=== PATIENT | male | born 1965 | race Caucasian/White ===

== ENCOUNTER 2018-03-26 17:55 | Inpatient (IN) | payer SELFPAY ==
[2018-03-26] MEDS ORDERED: ASPIRIN 81 MG TABLET, CHEWABLE PO ONE (19:02)
--- NOTE | 2018-03-26 19:04 | ER Document Report ---
ED General - General Chief Complaint: Skin Problem Stated Complaint: DIFFICULTY BREATHING Time Seen by Provider: 03/26/18 18:50 - HPI Notes: This note has been entered as a RME note. please regard as RME note Chest pain since Monday shortness of breath along with boils in the inguinal region patient is diabetic - Related Data Allergies/Adverse Reactions: No Known Allergies Allergy (Unverified 03/26/18 21:16) Past Medical History - Past Medical History Cardiac Medical History: Reports: Hx Hypertension Endocrine Medical History: Reports: Hx Diabetes Mellitus Type 2 Review of Systems - Review of Systems Cardiovascular: Chest pain Respiratory: Cough, Short of breath Skin: Other Physical Exam - Vital signs Vitals: Temp Pulse Resp BP Pulse Ox 99.6 F 96 18 120/74 95 03/26/18 18:10 03/26/18 18:10 03/26/18 18:10 03/26/18 18:10 03/26/18 18:10 Course - Vital Signs Vital signs: Temp Pulse Resp BP Pulse Ox 98.2 F 94 16 160/89 H 93 03/30/18 19:46 03/30/18 20:35 03/30/18 20:35 03/30/18 19:46 03/30/18 20:35 - Laboratory Result Diagrams: 03/29/18 14:35 03/28/18 06:27 Laboratory results interpreted by me: 03/26/18 03/26/18 03/26/18 19:19 19:19 20:29 WBC 31.5 H* Seg Neutrophils % Seg Neuts % (Manual) 79 H Lymphocytes % Lymphocytes % (Manual) 7 L Absolute Neutrophils Abs Neuts (Manual) 24.9 H Absolute Monocytes Abs Monocytes (Manual) 4.1 H Sodium 135.0 L Chloride 96 L BUN Glucose 206 H POC Glucose Hemoglobin A1c % 8.4 H Calcium Total Bilirubin 1.4 H Direct Bilirubin 0.7 H AST ALT < 6 L Creatine Kinase 27 L Total Protein 8.4 H Albumin 03/26/18 03/27/18 03/27/18 23:48 06:31 06:31 WBC 20.7 H Seg Neutrophils % 84.1 H Seg Neuts % (Manual) Lymphocytes % 6.5 L Lymphocytes % (Manual) Absolute Neutrophils 17.4 H Abs Neuts (Manual) Absolute Monocytes 1.8 H Abs Monocytes (Manual) Sodium 133.7 L Chloride 97 L BUN 21 H Glucose 344 H POC Glucose 263 H Hemoglobin A1c % Calcium 8.3 L Total Bilirubin Direct Bilirubin AST ALT Creatine Kinase Total Protein Albumin 03/27/18 03/27/18 03/27/18 06:34 10:47 15:25 WBC 21.3 H Seg Neutrophils % Seg Neuts % (Manual) Lymphocytes % Lymphocytes % (Manual) 12 L Absolute Neutrophils Abs Neuts (Manual) 16.6 H Absolute Monocytes Abs Monocytes (Manual) 2.1 H Sodium Chloride BUN Glucose POC Glucose 366 H 242 H Hemoglobin A1c % Calcium Total Bilirubin Direct Bilirubin AST ALT Creatine Kinase Total Protein Albumin 03/27/18 03/27/18 03/27/18 15:25 15:25 16:23 WBC Seg Neutrophils % Seg Neuts % (Manual) Lymphocytes % Lymphocytes % (Manual) Absolute Neutrophils Abs Neuts (Manual) Absolute Monocytes Abs Monocytes (Manual) Sodium 133.3 L Chloride BUN 21 H Glucose 197 H POC Glucose 187 H Hemoglobin A1c % 8.3 H Calcium 8.2 L Total Bilirubin Direct Bilirubin AST 11 L ALT Creatine Kinase Total Protein 6.0 L Albumin 2.8 L Discharge - Discharge Clinical Impression: Scrotal abscess, Cellulitis, Tachycardia, Leukocytosis Condition: Serious Disposition: ADMITTED INPATIENT
[2018-03-26 19:34] LABS: HEMOGLOBIN 16.4 g/dL (13.5-17.0); MEAN CORPUSCULAR HEMOGLOBIN 30.9 pg (27.0-33.4); MEAN CORPUSCULAR HGB CONC 34.9 g/dL (32.0-36.0); MEAN CORPUSCULAR VOLUME 89 fl (80-97); PLATELET COUNT 337 10^3/uL (150-450); RED BLOOD COUNT 5.31 10^6/uL (4.35-5.55); RED CELL DISTRIBUTION WIDTH 12.5 % (11.5-14.0)
--- NOTE | 2018-03-26 19:34 | RADIOLOGY REPORT (SQ) ---
EXAM DESCRIPTION: CHEST SINGLE VIEW COMPLETED DATE/TIME: 03/26/2018 7:24 pm REASON FOR STUDY: sob COMPARISON: None. EXAM PARAMETERS: NUMBER OF VIEWS: One view. TECHNIQUE: Single frontal radiographic view of the chest acquired. RADIATION DOSE: NA LIMITATIONS: None. FINDINGS: LUNGS AND PLEURA: No opacities, masses or pneumothorax. No pleural effusion. MEDIASTINUM AND HILAR STRUCTURES: No masses. Contour normal. HEART AND VASCULAR STRUCTURES: Heart normal in size. Normal vasculature. BONES: No acute findings. HARDWARE: None in the chest. OTHER: No other significant finding. IMPRESSION: NO ACUTE RADIOGRAPHIC FINDING IN THE CHEST. TECHNICAL DOCUMENTATION: JOB ID: [id number] [employer]- All Rights Reserved Reading location - IP/workstation name: [email or web address]
[2018-03-26 19:38] LABS: INTERNATIONAL RATION (INR) 1.03
[2018-03-26 19:56] LABS: ABSOLUTE LYMPHOCYTES# (MANUAL) 2.2 10^3/uL (0.5-4.7); ABSOLUTE MONOCYTES # (MANUAL) 4.1 10^3/uL (0.1-1.4); ABSOLUTE NEUTROPHILS# (MANUAL) 24.9 10^3/uL (1.7-8.2); BASOPHILS % (MANUAL) 0 % (0-2); EOSINOPHILS % (MANUAL) 1 % (0-6); LYMPHOCYTES % (MANUAL) 7 % (13-45); MONOCYTES % (MANUAL) 13 % (3-13); SEGMENTED NEUTROPHILS % (MAN) 79 % (42-78); TOTAL CELLS COUNTED 100
[2018-03-26] MEDS ORDERED: IPRATROPIUM/ALBUTEROL 0.5-2.5 MG/3 ML AMPUL NEB ONE (19:56)
[2018-03-26] MEDS ORDERED: FENTANYL CITRATE INJ/PF 100 MCG/2 ML AMPUL IV ONE (19:56)
[2018-03-26] MEDS ORDERED: ONDANSETRON HCL INJ/PF 4 MG/2 ML SDV IV ONE (19:57)
[2018-03-26] MEDS ORDERED: NORMAL SALINE 1000 ML 1,000 ML IV ONE (19:57)
[2018-03-26 19:58] LABS: ALANINE AMINOTRANSFERASE < 6 U/L (21-72); ALBUMIN 3.9 g/dL (3.5-5.0); ALKALINE PHOSPHATASE 125 U/L (38-126); ANION GAP 14 (5-19); ASPARTATE AMINO TRANSFERASE 24 U/L (17-59); BILIRUBIN,DIRECT 0.7 mg/dL (0.0-0.4); BILIRUBIN,TOTAL 1.4 mg/dL (0.2-1.3); BLOOD UREA NITROGEN 16 mg/dL (7-20); CARBON DIOXIDE 25 mmol/L (22-30); CHLORIDE 96 mmol/L (98-107); CREATINE KINASE 27 U/L (55-170); GLUCOSE 206 mg/dL (75-110); PLATELET COMMENT ADEQUATE; POTASSIUM 4.1 mmol/L (3.6-5.0); TOTAL PROTEIN 8.4 g/dL (6.3-8.2); TOXIC GRANULATION SLIGHT
--- NOTE | 2018-03-26 19:58 | ER Document Report ---
ED General - General Chief Complaint: Skin Problem Stated Complaint: DIFFICULTY BREATHING Time Seen by Provider: 03/26/18 18:50 Notes: Patient is a 52-year-old male that comes emergency department for chief complaint of boils and swelling of the scrotum and groin area for the past 3 days. He states he is starting to get shaking chills, nausea any throughout earlier today. He states he has not eaten anything all day because he has not felt good. He also states that for the past few days he has felt short of breath with some tightness and pressure in his chest. He smokes. He has diet- controlled diabetes. He denies any daily medications. His tetanus is up-to- date within 5 years reportedly. - Related Data Allergies/Adverse Reactions: No Known Allergies Allergy (Unverified 03/26/18 21:16) Past Medical History - General Information source: Patient - Social History Smoking Status: Current Every Day Smoker Smoking Education Provided: Yes - <3 min Frequency of alcohol use: None Drug Abuse: None Lives with: Spouse/Significant other Family History: Reviewed & Not Pertinent Endocrine Medical History: Reports: Hx Diabetes Mellitus Type 2 Surgical Hx: Negative - Immunizations Hx Diphtheria, Pertussis, Tetanus Vaccination: Yes Review of Systems - Review of Systems Constitutional: See HPI EENT: No symptoms reported Cardiovascular: See HPI Respiratory: See HPI Gastrointestinal: No symptoms reported Genitourinary: See HPI Male Genitourinary: No symptoms reported Musculoskeletal: No symptoms reported Skin: See HPI Hematologic/Lymphatic: No symptoms reported Neurological/Psychological: No symptoms reported Physical Exam - Vital signs Vitals: Temp Pulse Resp BP Pulse Ox 99.6 F 96 18 120/74 95 03/26/18 18:10 03/26/18 18:10 03/26/18 18:10 03/26/18 18:10 03/26/18 18:10 - Notes Notes: GENERAL: Alert and responsive but moderately ill-appearing HEAD: Normocephalic, atraumatic. EYES: Pupils equal, round, and reactive to light. Extraocular movements intact. ENT: Oral mucosa moist, tongue midline. Oropharynx unremarkable. Airway patent. Nares patent, no nasal septal hematoma, TM's intact. NECK: Full range of motion. Supple. Trachea midline. LUNGS: Mild expiratory wheezes throughout, no tachypnea or labored breathing noted. HEART: Tachycardia, normal rhythm, no murmur. ABDOMEN: Soft, non-tender. Non-distended. Bowel sounds present in all 4 quadrants. GENITOURINARY: Large swelling with edema and erythema with tenderness over the scrotum mainly on the left side with induration and some old drainage along the side of the scrotum. Perineum is normal, there is no necrotic tissue noted. EXTREMITIES: Moves all 4 extremities spontaneously. No edema, normal radial and dorsalis pedis pulses bilaterally. No cyanosis. BACK: no cervical, thoracic, lumbar midline tenderness. No saddle anesthesia, normal distal neurovascular exam. NEUROLOGICAL: Alert and oriented x3. Normal speech. [cranial nerves II through XII grossly intact]. PSYCH: Normal affect, normal mood. SKIN: Slightly flushed. No rashes. Course - Re-evaluation Re-evalutation: Physical examination showing edematous scrotum with induration, abscess, cellulitis. Patient is tachycardic and somewhat ill-appearing. He has expiratory wheezes, was given a DuoNeb, he is requesting a nicotine patch. Patient has been n.p.o. all day. Initiating antibiotics, labs pending, will contact surgery. Discussed with Dr. Arriaza. CBC showing leukocytosis at 31,000 with elevation of neutrophils but no bandemia. Lactic acid is normal. Chemistry shows hyperglycemia with no acidosis. Bilirubin is mildly elevated, however abdomen is nontender. LFTs unremarkable. 03/26/18 20:[address] Roy, general surgery audio production engineer, he request the patient be kept n.p.o., states he will see the patient, probably take to the operating room , request patient be admitted to the hospitalist. 03/26/18 20:[address] Mckinnon, he states that he will consult on the patient but he feels that this should be admitted to the surgeon. Updated Dr. Roy. Dr. Roy has seen the patient, he is taking the patient to the operating room. - Vital Signs Vital signs: Temp Pulse Resp BP Pulse Ox 98.3 F 102 H 16 107/70 92 03/26/18 23:30 03/26/18 23:30 03/26/18 23:30 03/26/18 23:30 03/26/18 23:30 - Laboratory Result Diagrams: 03/26/18 19:19 03/26/18 19:19 Laboratory results interpreted by me: 03/26/18 03/26/18 03/26/18 19:19 19:19 20:29 WBC 31.5 H* Seg Neuts % (Manual) 79 H Lymphocytes % (Manual) 7 L Abs Neuts (Manual) 24.9 H Abs Monocytes (Manual) 4.1 H Sodium 135.0 L Chloride 96 L Glucose 206 H Hemoglobin A1c % 8.4 H Total Bilirubin 1.4 H Direct Bilirubin 0.7 H ALT < 6 L Creatine Kinase 27 L Total Protein 8.4 H Discharge - Discharge Clinical Impression: Scrotal abscess, Tachycardia Cellulitis Qualifiers: Site of cellulitis: unspecified site Qualified Code(s): L03.90 - Cellulitis, unspecified Leukocytosis Qualifiers: Leukocytosis type: unspecified Qualified Code(s): D72.829 - Elevated white blood cell count, unspecified Condition: Serious Disposition: ADMITTED INPATIENT Admitting Provider: Surgicalist Unit Admitted: OR
[2018-03-26 20:08] LABS: WHITE BLOOD COUNT 31.5 10^3/uL (4.0-10.5)
[2018-03-26] MEDS ORDERED: PIPERACILLIN/TAZOBACTAM 4.5 GM VIAL IV ONE (20:10)
[2018-03-26] MEDS ORDERED: VANCOMYCIN HCL INJ 1000 MG VIAL IV ONE (20:10)
[2018-03-26 20:11] LABS: CREATINE KINASE MB < 0.22 ng/mL (<4.55); TROPONIN I < 0.012 ng/mL
[2018-03-26] MEDS ORDERED: NICOTINE 14 MG/24 HR PATCH.TD24 TD ONE (20:38)
[2018-03-26] MEDS ORDERED: NORMAL SALINE 1000 ML 1,000 ML IV PRN (21:06)
[2018-03-26] MEDS ORDERED: ONDANSETRON HCL INJ/PF 4 MG/2 ML SDV ONE (21:07)
[2018-03-26] MEDS ORDERED: FENTANYL CITRATE INJ/PF 100 MCG/2 ML AMPUL ONE (21:07)
[2018-03-26] MEDS ORDERED: MIDAZOLAM 2 MG/2 ML INJ ONE (21:07)
[2018-03-26] MEDS ORDERED: ACETAMINOPHEN 1,000 MG/100 ML RTUPB IV ONE (21:08)
[2018-03-26] MEDS ORDERED: MORPHINE SULFATE 10 MG/ML INJ ONE (21:08)
[2018-03-26] MEDS ORDERED: PROPOFOL INJ 200 MG/20 ML VIAL IV ONE (21:08)
--- NOTE | 2018-03-26 21:09 | PDOC H&P ---
History of Present Illness Admission Date/PCP: 03/26/18 21:01 Patient complains of: Left groin pain swelling drainage History of Present Illness: WASHINGTON MADSEN is a 52 year old male Presents emergency department via ground rescue complaining of a 3-4-day history of left groin pain, swelling, sweats, shaking chills. Patient smokes 3 packs cigarettes per day. He seen in the emergency department where he was found to have a purulent infected left groin and scrotal abscess. Surgery was consulted he is advised admission, definitive surgical management. He denies previous history groin pain, swelling or any other soft tissue infections. Past Medical History Cardiac Medical History: Reports: Hypertension Endocrine Medical History: Reports: Diabetes Mellitus Type 2 Past Surgical History Past Surgical History: Reports: None Social History Information Source: Patient Smoking Status: Current Every Day Smoker Frequency of Alcohol Use: Rare Hx Recreational Drug Use: No Family History Parental Family History Reviewed: Yes Children Family History Reviewed: Yes Sibling(s) Family History Reviewed.: Yes Medication/Allergy Allergies/Adverse Reactions: No Known Allergies Allergy (Unverified 03/26/18 17:57) Review of Systems Constitutional: PRESENT: as per HPI Eyes: ABSENT: visual disturbances Ears: ABSENT: hearing changes Cardiovascular: ABSENT: chest pain, dyspnea on exertion, edema, orthropnea, palpitations Respiratory: ABSENT: cough, hemoptysis Physical Exam Vital Signs: Temp Pulse Resp BP Pulse Ox 99.6 F 96 23 H 134/84 H 96 03/26/18 18:10 03/26/18 18:10 03/26/18 20:00 03/26/18 20:00 03/26/18 20:00 General appearance: PRESENT: mild distress Eye exam: PRESENT: EOMI Mouth exam: PRESENT: dry mucosa Neck exam: PRESENT: full ROM Respiratory exam: PRESENT: rhonchi Cardiovascular exam: PRESENT: RRR Pulses: PRESENT: normal carotid pulses, normal radial pulses GI/Abdominal exam: PRESENT: other - Foul-smelling drainage from the left inguinal region with cheesy material draining from around to spontaneously and wounds in the left deep groin extending onto the melissa-scrotal tissue Rectal exam: PRESENT: deferred Psychiatric exam: PRESENT: appropriate affect Results Impressions: Chest X-Ray 03/26/18 19:02 IMPRESSION: NO ACUTE RADIOGRAPHIC FINDING IN THE CHEST. Assessment & Plan - Diagnosis (1) Scrotal abscess Is this a current diagnosis for this admission?: Yes Plan: Impression: Acute left scrotal abscess with sepsis; needs admission and drainage 1. We will admit to the surgical service, keep n.p.o., IV fluid resuscitation and intravenous antibiotics. 2. We will check liver function studies in the morning to ensure total bilirubin stabilizes. 3. We have asked the hospitalist to consult and assist with medical management (2) Smoker Is this a current diagnosis for this admission?: Yes (3) Type 2 diabetes mellitus Is this a current diagnosis for this admission?: Yes (4) Cellulitis Qualifiers: Site of cellulitis: unspecified site Qualified Code(s): L03.90 - Cellulitis , unspecified Is this a current diagnosis for this admission?: Yes (5) Leukocytosis Qualifiers: Leukocytosis type: unspecified Qualified Code(s): D72.829 - Elevated white blood cell count, unspecified Is this a current diagnosis for this admission?: Yes (6) Tachycardia Is this a current diagnosis for this admission?: Yes - Time Time Spent: 30 to 50 Minutes Critical Time spent with patient: Less than 15 minutes Medications reviewed and adjusted accordingly: Yes Anticipated discharge: Home - Inpatient Certification Based on my medical assessment, after consideration of the patient's comorbidities, presenting symptoms, or acuity I expect that the services needed warrant INPATIENT care.: Yes I certify that my determination is in accordance with my understanding of Medicare's requirements for reasonable and necessary INPATIENT services [42 CFR 412.3e].: Yes Medical Necessity: Need For IV Fluids, Need for Pain Control, Need for IV Antibiotics, Need for Surgery
[2018-03-26] MEDS ORDERED: DEXTROSE 40% GEL 15 GM TUBE PO PRN ×4 (21:14→22:29)
[2018-03-26] MEDS ORDERED: DEXTROSE 50%-WATER 25 GM/50 ML DISP.SYRIN IV PRN ×4 (21:14→22:29)
[2018-03-26] MEDS ORDERED: GLUCAGON,HUMAN RECOMB 1 MG INJ IM PRN ×2 (21:14→22:29)
[2018-03-26] MEDS ORDERED: INSULIN LISPRO 100 UNIT/ML 3 ML VIAL SUBCUT PRN (21:14)
[2018-03-26] MEDS ORDERED: HYDRALAZINE HCL INJ/PF 20 MG/1 ML SDV IV PRN (21:15)
[2018-03-26] MEDS ORDERED: IPRATROPIUM/ALBUTEROL 0.5-2.5 MG/3 ML AMPUL NEB PRN (21:15)
[2018-03-26] MEDS ORDERED: BUPIVACAINE HCL 0.25 % INJ/PF (2.5 MG/1 ML) 30 ML VIAL ONE (21:19)
[2018-03-26] MEDS ORDERED: BUPIVACAINE HCL/DEX-WATER/PF 15 MG/2 ML AMPULE ONE (21:55)
[2018-03-26] MEDS ORDERED: FENTANYL CITRATE INJ/PF 100 MCG/2 ML AMPUL IV PRN ×3 (22:21)
[2018-03-26] MEDS ORDERED: MEPERIDINE HCL/PF INJ 25 MG/1 ML DISP.SYRIN IV PRN (22:21)
[2018-03-26] MEDS ORDERED: PROMETHAZINE HCL INJ 25 MG/1 ML VIAL IV PRN (22:21)
[2018-03-26] MEDS ORDERED: DIPHENHYDRAMINE HCL 50 MG/ML VIAL IV PRN (22:21)
[2018-03-26] MEDS ORDERED: ONDANSETRON HCL INJ/PF 4 MG/2 ML SDV IV PRN (22:28)
[2018-03-26] MEDS ORDERED: KETOROLAC TROMETHAMINE 10 MG TABLET PO PRN (22:28)
--- NOTE | 2018-03-26 22:28 | Operative Report ---
Operative Report DATE OF SURGERY: 03/26/18 PREOPERATIVE DIAGNOSIS: 1. Sepsis. 2. Left groin abscess. 3. Uncontrolled hyper glycemia POSTOPERATIVE DIAGNOSIS: Same OPERATION: Incision and drainage packing left upper scrotal abscess SURGEON: JESSICA JACKSON ANESTHESIA: Spinal TISSUE REMOVED OR ALTERED: Necrotic subcutaneous tissue and skin COMPLICATIONS: None ESTIMATED BLOOD LOSS: Scant INTRAOPERATIVE FINDINGS: See below PROCEDURE: The patient was taken to the main operating room and spinal anesthesia was induced. He was placed in the spine, stirrups position, scrotum prepped and draped sterile fashion. Surgical plan surgical timeout were conducted. An elliptical excision of skin and subcutaneous tissue was performed with a #10 blade over the left hemiscrotum along the orientation in the lateral scrotal sac. Subcutaneous tissue loculations were broken up with hemostat. Pus was evacuated. Subcutaneous tracking cephalad caudad laterally and medially was defined, and all loculations broken up. There was no tracking across midline or into deeper tissue. Culture sent for Gram stain sensitivity. Wound irrigated with 2 L of warm saline and packed open with half-inch iodoform packing,, taken recovery room in stable condition.
[2018-03-27] MEDS: HEPARIN SOD (PORCINE) 5,000 UNIT/ML 1 ML SYRINGE SUBCUT SCH ×4 (00:06→21:25)
[2018-03-27] MEDS: INSULIN REG, HUMAN 100 UNIT/ML 3 ML VIAL (PYX) SUBCUT PRN ×2 (00:07→07:48)
[2018-03-27] MEDS: KETOROLAC TROMETHAMINE INJ/PF 30 MG/1 ML SDV IV PRN ×3 (00:27→16:02)
[2018-03-27 06:59] LABS: ABSOLUTE BASOPHILS # (AUTO) 0.1 10^3/uL (0.0-0.2); ABSOLUTE LYMPHOCYTES (AUTO) 1.3 10^3/uL (0.5-4.7); ABSOLUTE MONOCYTES (AUTO) 1.8 10^3/uL (0.1-1.4); ABSOLUTE NEUT (AUTO) 17.4 10^3/uL (1.7-8.2); BASOPHILS % (AUTO) 0.4 % (0-2); EOSINOPHILS % (AUTO) 0.1 % (0-6); HEMATOCRIT 43.2 % (37.9-51.0); HEMOGLOBIN 14.7 g/dL (13.5-17.0); LYMPHOCYTES % (AUTO) 6.5 % (13-45); MEAN CORPUSCULAR HEMOGLOBIN 30.8 pg (27.0-33.4); MEAN CORPUSCULAR VOLUME 91 fl (80-97); MONOCYTES % (AUTO) 8.9 % (3-13); PLATELET COUNT 250 10^3/uL (150-450); RED BLOOD COUNT 4.77 10^6/uL (4.35-5.55); RED CELL DISTRIBUTION WIDTH 13.3 % (11.5-14.0); SEGMENTED NEUTROPHILS % (AUTO) 84.1 % (42-78); TOTAL CELLS COUNTED % (AUTO) 100 %; WHITE BLOOD COUNT 20.7 10^3/uL (4.0-10.5)
[2018-03-27 07:15] LABS: ANION GAP 12 (5-19); BLOOD UREA NITROGEN 21 mg/dL (7-20); CALCIUM 8.3 mg/dL (8.4-10.2); CARBON DIOXIDE 25 mmol/L (22-30); CHLORIDE 97 mmol/L (98-107); GLUCOSE 344 mg/dL (75-110); POTASSIUM 4.8 mmol/L (3.6-5.0); SODIUM 133.7 mmol/L (137-145)
[2018-03-27] MEDS: IPRATROPIUM/ALBUTEROL 0.5-2.5 MG/3 ML AMPUL NEB SCH ×2 (08:17→20:02)
[2018-03-27] MEDS ORDERED: MORPHINE SULFATE 10 MG/ML INJ ONE (09:33)
[2018-03-27] MEDS ORDERED: MORPHINE SULFATE 10 MG/ML INJ IV ONE (10:15)
--- NOTE | 2018-03-27 10:37 | PDOC PROGRESS REPORT ---
Subjective Progress Note for:: 03/27/18 Subjective:: pains left groin Reason For Visit: LEFT GROIN AND SCROTAL ABSCESS Physical Exam Vital Signs: Temp Pulse Resp BP Pulse Ox 99.4 F 79 16 119/72 91 L 03/27/18 08:00 03/27/18 08:17 03/27/18 08:17 03/27/18 08:00 03/27/18 08:17 Intake & Output 03/26/18 03/27/18 03/28/18 06:59 06:59 06:59 Intake Total 4720 Output Total 1999 Balance 2720 Weight 118.3 kg Exam: packing removed from left groin but still have a lot of tenderness and erythema to left groin and scrotal area. Results Laboratory Results: 03/27/18 06:31 03/27/18 06:31 03/27/18 03/27/18 06:31 06:31 WBC 20.7 H RBC 4.77 Hgb 14.7 Hct 43.2 MCV 91 MCH 30.8 MCHC 34.0 RDW 13.3 Plt Count 250 Seg Neutrophils % 84.1 H Lymphocytes % 6.5 L Monocytes % 8.9 Eosinophils % 0.1 Basophils % 0.4 Absolute Neutrophils 17.4 H Absolute Lymphocytes 1.3 Absolute Monocytes 1.8 H Absolute Eosinophils 0.0 Absolute Basophils 0.1 Sodium 133.7 L Potassium 4.8 Chloride 97 L Carbon Dioxide 25 Anion Gap 12 BUN 21 H Creatinine 1.05 Est GFR ( Amer) > 60 Est GFR (Non-Af Amer) > 60 Glucose 344 H Calcium 8.3 L 03/27/18 03/27/18 00:21 06:31 Troponin I < 0.012 NT-Pro-B Natriuret Pep 287 Impressions: Chest X-Ray 03/26/18 19:02 IMPRESSION: NO ACUTE RADIOGRAPHIC FINDING IN THE CHEST. Assessment & Plan - Time Time Spent with patient: 15-24 minutes - Inpatient Certification Medical Necessity: Need for Pain Control, Need for IV Antibiotics - Plan Summary Plan Summary: Left groin wound repacked gently with wet to dry dressings Ask Hospitalist for Diabetes mx. Continue IV antibiotics Check C&S results
[2018-03-27] MEDS ORDERED: INSULIN LISPRO 100 UNIT/ML 3 ML VIAL SUBCUT PRN (12:14)
[2018-03-27] MEDS ORDERED: DEXTROSE 50%-WATER 25 GM/50 ML DISP.SYRIN IV PRN ×4 (12:14→12:22)
[2018-03-27] MEDS ORDERED: GLUCAGON,HUMAN RECOMB 1 MG INJ IM PRN ×2 (12:14→12:22)
[2018-03-27] MEDS ORDERED: DEXTROSE 40% GEL 15 GM TUBE PO PRN ×4 (12:14→12:22)
[2018-03-27] MEDS ORDERED: INSULIN REG, HUMAN 100 UNIT/ML 3 ML VIAL (PYX) SUBCUT PRN (12:22)
--- NOTE | 2018-03-27 12:35 | PDOC CONSULTATION ---
Consultation Consult Date: 03/27/18 Consult reason:: Patient has history of diabetes mellitus and hypertension History of Present Illness Admission Date/PCP: 03/26/18 21:01 History of Present Illness: WASHINGTON MADSEN is a 52 year old male with h/o DM and HTN ,not on meds Presents emergency department via ground rescue complaining of a 3-4-day history of left groin pain, swelling, sweats, shaking chills. Patient smokes 3 packs cigarettes per day. He seen in the emergency department where he was found to have a purulent infected left groin and scrotal abscess. Surgery was consulted he is advised admission, definitive surgical management. He denies previous history groin pain, swelling or any other soft tissue infections. 03/27/2018-status post I$D day 2, patient is comfortably in the bed denies any complaints. He is afebrile. Vital signs are stable. Medical consult was called for the management of blood sugars and hypertension. Patient is given the history of scrotal abscess noticed 3 days ago increasing size and pain decided to come to the emergency room last night. He has a similar issues before in other places of the body. He describes intense pain pain scale of 10 x 10 associated with fevers chills sweating. He is also complained of nausea and vomitings since yesterday denies any diarrhea. Denies any rashes, denies any headaches dizzy spells. Denies any chest pains. Past Medical History Cardiac Medical History: Reports: Hypertension Endocrine Medical History: Reports: Diabetes Mellitus Type 2 Psychiatric Medical History: Denies: Depression Past Surgical History Past Surgical History: Reports: None Social History Lives with: Spouse/Significant other Smoking Status: Current Every Day Smoker Frequency of Alcohol Use: Rare Hx Recreational Drug Use: No Hx Prescription Drug Abuse: No - Advance Directive Resuscitation Status: Full Code Family History Family History: Reviewed & Not Pertinent, Other - Family history of diabetes and hypertension. Parental Family History Reviewed: Yes Children Family History Reviewed: Yes Sibling(s) Family History Reviewed.: Yes Medication/Allergy Home Medications: No Home Medications 03/26/18 Allergies/Adverse Reactions: No Known Allergies Allergy (Unverified 03/26/18 21:16) Review of Systems Constitutional: PRESENT: chills, fever(s) Eyes: ABSENT: visual disturbances Ears: ABSENT: hearing changes Nose, Mouth, and Throat: ABSENT: headache(s), sore throat Cardiovascular: ABSENT: dyspnea on exertion Respiratory: ABSENT: dyspnea Gastrointestinal: PRESENT: nausea, vomiting Genitourinary: PRESENT: other - Severe swelling in the scrotal region left side with pain associated with fever chills.. ABSENT: dysuria, hematuria Neurological: ABSENT: abnormal gait, abnormal speech, confusion, dizziness, focal weakness, syncope Physical Exam Vital Signs: Temp Pulse Resp BP Pulse Ox 98.8 F 108 H 18 111/70 91 L 03/27/18 11:34 03/27/18 11:34 03/27/18 11:34 03/27/18 11:34 03/27/18 11:34 Intake & Output 03/26/18 03/27/18 03/28/18 06:59 06:59 06:59 Intake Total 4720 1000 Output Total 2000 Balance 2720 1000 Weight 118.3 kg General appearance: PRESENT: mild distress Head exam: PRESENT: atraumatic Eye exam: PRESENT: PERRLA Mouth exam: PRESENT: moist Neck exam: ABSENT: carotid bruit, JVD, lymphadenopathy, thyromegaly Respiratory exam: PRESENT: clear to auscultation raine. ABSENT: rales, rhonchi, wheezes Vascular exam: PRESENT: normal capillary refill GI/Abdominal exam: PRESENT: normal bowel sounds, soft. ABSENT: distended, guarding, mass, organolmegaly, rebound, tenderness Extremities exam: PRESENT: other - Left-sided scrotal abscess status post I&D rapid and dressing. Neurological exam: PRESENT: alert, awake, oriented to person, oriented to place , oriented to time, oriented to situation, CN II-XII grossly intact. ABSENT: motor sensory deficit Psychiatric exam: PRESENT: appropriate affect, normal mood. ABSENT: homicidal ideation, suicidal ideation Results Laboratory Results: 03/27/18 06:31 03/27/18 06:31 03/27/18 03/27/18 06:31 06:31 WBC 20.7 H RBC 4.77 Hgb 14.7 Hct 43.2 MCV 91 MCH 30.8 MCHC 34.0 RDW 13.3 Plt Count 250 Seg Neutrophils % 84.1 H Lymphocytes % 6.5 L Monocytes % 8.9 Eosinophils % 0.1 Basophils % 0.4 Absolute Neutrophils 17.4 H Absolute Lymphocytes 1.3 Absolute Monocytes 1.8 H Absolute Eosinophils 0.0 Absolute Basophils 0.1 Sodium 133.7 L Potassium 4.8 Chloride 97 L Carbon Dioxide 25 Anion Gap 12 BUN 21 H Creatinine 1.05 Est GFR ( Amer) > 60 Est GFR (Non-Af Amer) > 60 Glucose 344 H Calcium 8.3 L 03/27/18 03/27/18 00:21 06:31 Troponin I < 0.012 NT-Pro-B Natriuret Pep 287 Impressions: Chest X-Ray 03/26/18 19:02 IMPRESSION: NO ACUTE RADIOGRAPHIC FINDING IN THE CHEST. Assessment & Plan - Diagnosis (1) Scrotal abscess Is this a current diagnosis for this admission?: Yes Plan: 03/23/2018-patient came in with left-sided scrotal abscess status post I&D was done. Scrotal cultures are pending blood cultures are pending. I started him on Unasyn 3 g IV every 6 hours. Pain management as per the surgical team. After IV fluids. (2) Smoker Is this a current diagnosis for this admission?: Yes Plan: 03/27/2018 patient has history of smoking 3 packs/day. Smoking counseling was advised and smoking counseling was provided for more than 10 minutes. Advised to quit smoking. (3) Type 2 diabetes mellitus Is this a current diagnosis for this admission?: Yes Plan: 03/27/2018 patient is given the history of diabetes mellitus. But is not in any home medications. His blood sugars are running high during the hospital admission. Latest blood sugar is 242. I am going to check his hemoglobin A1c. He is going to be on insulin sliding scale before meals and at bedtime. Dietary consult is going to be requested. Diet and exercise was advised. (4) Tachycardia Is this a current diagnosis for this admission?: Yes Plan: 03/27/2018 patient's heart rate is around 108. Tachycardia may be secondary to sepsis/pain. (5) Hypertension Is this a current diagnosis for this admission?: Yes Plan: 03/27/2018 patient given the history of hypertension but is not any home medications. I started him on lisinopril 10 mg p.o. nightly. I am going to adjust his blood pressure medications based on the daily readings. - Time Time Spent: 30 to 50 Minutes Medications reviewed and adjusted accordingly: Yes Anticipated discharge: Home
[2018-03-27] MEDS: INSULIN LISPRO 100 UNIT/ML 3 ML VIAL SUBCUT PRN ×2 (12:43→17:44)
--- NOTE | 2018-03-27 13:08 | EKG REPORT ---
SEVERITY:- OTHERWISE NORMAL ECG - SINUS TACHYCARDIA : Confirmed by: Bharti Guevara MD 27-Mar-2018 13:07:27
[2018-03-27] MEDS: AMPICILLIN SODIUM/SULBACTAM NA 3 GM in NORMAL SALINE 100 ML IV SCH ×2 (13:12→17:57)
[2018-03-27 14:43] LABS: PATH REVIEW PATHOLOGIST REVIEWED
[2018-03-27] MEDS: ACETAMINOPHEN 325 MG TABLET PO PRN ×2 (15:05→21:45)
[2018-03-27 15:39] LABS: HEMATOCRIT 39.8 % (37.9-51.0); HEMOGLOBIN 13.7 g/dL (13.5-17.0); MEAN CORPUSCULAR HEMOGLOBIN 30.7 pg (27.0-33.4); MEAN CORPUSCULAR HGB CONC 34.5 g/dL (32.0-36.0); MEAN CORPUSCULAR VOLUME 89 fl (80-97); PLATELET COUNT 268 10^3/uL (150-450); RED BLOOD COUNT 4.47 10^6/uL (4.35-5.55); RED CELL DISTRIBUTION WIDTH 12.7 % (11.5-14.0); WHITE BLOOD COUNT 21.3 10^3/uL (4.0-10.5)
[2018-03-27 15:54] LABS: ABSOLUTE LYMPHOCYTES# (MANUAL) 2.6 10^3/uL (0.5-4.7); ABSOLUTE MONOCYTES # (MANUAL) 2.1 10^3/uL (0.1-1.4); ABSOLUTE NEUTROPHILS# (MANUAL) 16.6 10^3/uL (1.7-8.2); BASOPHILS % (MANUAL) 0 % (0-2); EOSINOPHILS % (MANUAL) 0 % (0-6); LYMPHOCYTES % (MANUAL) 12 % (13-45); MONOCYTES % (MANUAL) 10 % (3-13); SEGMENTED NEUTROPHILS % (MAN) 78 % (42-78); TOTAL CELLS COUNTED 100
[2018-03-27 15:55] LABS: PLATELET COMMENT ADEQUATE; TOXIC GRANULATION SLIGHT
[2018-03-27 15:56] LABS: ALANINE AMINOTRANSFERASE 21 U/L (21-72); ALBUMIN 2.8 g/dL (3.5-5.0); ALKALINE PHOSPHATASE 86 U/L (38-126); ANION GAP 8 (5-19); ASPARTATE AMINO TRANSFERASE 11 U/L (17-59); BILIRUBIN,DIRECT 0.4 mg/dL (0.0-0.4); BILIRUBIN,TOTAL 0.4 mg/dL (0.2-1.3); BLOOD UREA NITROGEN 21 mg/dL (7-20); CALCIUM 8.2 mg/dL (8.4-10.2); CARBON DIOXIDE 26 mmol/L (22-30); CHLORIDE 99 mmol/L (98-107); GLUCOSE 197 mg/dL (75-110); POTASSIUM 4.4 mmol/L (3.6-5.0); SODIUM 133.3 mmol/L (137-145)
[2018-03-27] MEDS ORDERED: NICOTINE 21 MG/24 HR PATCH.TD24 TD ONE (16:30)
[2018-03-27] MEDS ORDERED: AMPICILLIN SOD/SULBACTAM 3 GM VIAL IV SCH (18:00)
[2018-03-27] MEDS: MORPHINE SULFATE 10 MG/ML INJ IV PRN (18:54)
[2018-03-27] MEDS: SIMVASTATIN 10 MG TABLET PO SCH (21:46)
[2018-03-28] MEDS: AMPICILLIN SODIUM/SULBACTAM NA 3 GM in NORMAL SALINE 100 ML IV SCH ×4 (00:36→17:56)
[2018-03-28] MEDS: ACETAMINOPHEN 325 MG TABLET PO PRN (03:51)
[2018-03-28] MEDS: HEPARIN SOD (PORCINE) 5,000 UNIT/ML 1 ML SYRINGE SUBCUT SCH ×3 (05:26→21:56)
[2018-03-28 06:40] LABS: ABSOLUTE BASOPHILS # (AUTO) 0.1 10^3/uL (0.0-0.2); ABSOLUTE LYMPHOCYTES (AUTO) 1.6 10^3/uL (0.5-4.7); ABSOLUTE MONOCYTES (AUTO) 1.4 10^3/uL (0.1-1.4); ABSOLUTE NEUT (AUTO) 16.7 10^3/uL (1.7-8.2); BASOPHILS % (AUTO) 0.3 % (0-2); EOSINOPHILS % (AUTO) 0.1 % (0-6); HEMATOCRIT 39.9 % (37.9-51.0); HEMOGLOBIN 13.8 g/dL (13.5-17.0); MEAN CORPUSCULAR HEMOGLOBIN 30.5 pg (27.0-33.4); MEAN CORPUSCULAR HGB CONC 34.5 g/dL (32.0-36.0); MEAN CORPUSCULAR VOLUME 88 fl (80-97); MONOCYTES % (AUTO) 7.3 % (3-13); PLATELET COUNT 273 10^3/uL (150-450); RED BLOOD COUNT 4.52 10^6/uL (4.35-5.55); RED CELL DISTRIBUTION WIDTH 12.9 % (11.5-14.0); SEGMENTED NEUTROPHILS % (AUTO) 84.3 % (42-78); TOTAL CELLS COUNTED % (AUTO) 100 %; WHITE BLOOD COUNT 19.8 10^3/uL (4.0-10.5)
[2018-03-28 06:52] LABS: ANION GAP 8 (5-19); BLOOD UREA NITROGEN 17 mg/dL (7-20); CALCIUM 8.2 mg/dL (8.4-10.2); CARBON DIOXIDE 25 mmol/L (22-30); CHLORIDE 104 mmol/L (98-107); GLUCOSE 200 mg/dL (75-110); POTASSIUM 4.2 mmol/L (3.6-5.0); SODIUM 137.3 mmol/L (137-145)
[2018-03-28] MEDS: MORPHINE SULFATE 10 MG/ML INJ IV PRN ×3 (08:00→22:01)
[2018-03-28] MEDS: INSULIN LISPRO 100 UNIT/ML 3 ML VIAL SUBCUT PRN ×4 (08:08→21:56)
[2018-03-28] MEDS: IPRATROPIUM/ALBUTEROL 0.5-2.5 MG/3 ML AMPUL NEB SCH ×2 (08:43→19:38)
[2018-03-28] MEDS: LISINOPRIL 10 MG TABLET PO SCH (10:01)
[2018-03-28] MEDS: NICOTINE 21 MG/24 HR PATCH.TD24 TD SCH (10:01)
[2018-03-28] MEDS: KETOROLAC TROMETHAMINE INJ/PF 30 MG/1 ML SDV IV PRN ×2 (10:11→17:55)
--- NOTE | 2018-03-28 12:42 | PDOC PROGRESS REPORT ---
Subjective Reason For Visit: LEFT GROIN AND SCROTAL ABSCESS,POSSIBLE SEPSIS Physical Exam Vital Signs: Temp Pulse Resp BP Pulse Ox 99.0 F 98 16 134/73 H 92 03/28/18 11:21 03/28/18 11:21 03/28/18 11:21 03/28/18 11:21 03/28/18 11:21 Intake & Output 03/27/18 03/28/18 03/29/18 06:59 06:59 06:59 Intake Total 4720 2324 Output Total 1999 1700 Balance 2720 624 Weight 118.3 kg 124.4 kg Results Laboratory Results: 03/28/18 06:27 03/28/18 06:27 03/27/18 03/27/18 03/28/18 15:25 15:25 06:27 WBC 21.3 H 19.8 H RBC 4.47 4.52 Hgb 13.7 13.8 Hct 39.8 39.9 MCV 89 88 MCH 30.7 30.5 MCHC 34.5 34.5 RDW 12.7 12.9 Plt Count 268 273 Seg Neutrophils % Not Reportable 84.3 H Lymphocytes % Not Reportable 8.0 L Monocytes % Not Reportable 7.3 Eosinophils % Not Reportable 0.1 Basophils % Not Reportable 0.3 Absolute Neutrophils Not Reportable 16.7 H Absolute Lymphocytes Not Reportable 1.6 Absolute Monocytes Not Reportable 1.4 Absolute Eosinophils Not Reportable 0.0 Absolute Basophils Not Reportable 0.1 Sodium 133.3 L Potassium 4.4 Chloride 99 Carbon Dioxide 26 Anion Gap 8 BUN 21 H Creatinine 1.15 Est GFR ( Amer) > 60 Est GFR (Non-Af Amer) > 60 Glucose 197 H Calcium 8.2 L Magnesium 1.6 Total Bilirubin 0.4 AST 11 L ALT 21 Alkaline Phosphatase 86 Total Protein 6.0 L Albumin 2.8 L 03/28/18 06:27 WBC RBC Hgb Hct MCV MCH MCHC RDW Plt Count Seg Neutrophils % Lymphocytes % Monocytes % Eosinophils % Basophils % Absolute Neutrophils Absolute Lymphocytes Absolute Monocytes Absolute Eosinophils Absolute Basophils Sodium 137.3 Potassium 4.2 Chloride 104 Carbon Dioxide 25 Anion Gap 8 BUN 17 Creatinine 0.80 Est GFR ( Amer) > 60 Est GFR (Non-Af Amer) > 60 Glucose 200 H Calcium 8.2 L Magnesium Total Bilirubin AST ALT Alkaline Phosphatase Total Protein Albumin 03/27/18 03/27/18 00:21 06:31 Troponin I < 0.012 NT-Pro-B Natriuret Pep 287 Impressions: Chest X-Ray 03/26/18 19:02 IMPRESSION: NO ACUTE RADIOGRAPHIC FINDING IN THE CHEST. Assessment & Plan - Plan Summary Plan Summary: 52-year-old male status post incision and drainage of a scrotal abscess. The abscess cavity appears clean, without continued purulence. The patient still has significant swelling of the scrotum, which is likely reactive. The patient needs aggressive blood glucose management. Continue antibiotics. Continue dressing changes. Ambulate.
--- NOTE | 2018-03-28 13:49 | PDOC PROGRESS REPORT ---
Subjective Progress Note for:: 03/28/18 Subjective:: 52-year-old male with history of diabetes hypertension admitted with a left scrotal abscess status post I&D was done. Medical consult was requested for controlling blood sugars and blood pressure. Other than the problem of the scrotum patient is asymptomatic. His main concern is the swollen scrotum. Patient T-max is 99. Reason For Visit: LEFT GROIN AND SCROTAL ABSCESS,POSSIBLE SEPSIS Physical Exam Vital Signs: Temp Pulse Resp BP Pulse Ox 99.0 F 98 16 134/73 H 92 03/28/18 11:21 03/28/18 11:21 03/28/18 11:21 03/28/18 11:21 03/28/18 11:21 Intake & Output 03/27/18 03/28/18 03/29/18 06:59 06:59 06:59 Intake Total 4720 2324 Output Total 1999 1700 Balance 2720 624 Weight 118.3 kg 124.4 kg General appearance: PRESENT: no acute distress Head exam: PRESENT: atraumatic Eye exam: PRESENT: PERRLA Mouth exam: PRESENT: moist Neck exam: ABSENT: carotid bruit, JVD, lymphadenopathy, thyromegaly Respiratory exam: PRESENT: clear to auscultation raine. ABSENT: rales, rhonchi, wheezes Cardiovascular exam: PRESENT: RRR. ABSENT: diastolic murmur, rubs, systolic murmur GI/Abdominal exam: PRESENT: normal bowel sounds, soft. ABSENT: distended, guarding, mass, organolmegaly, rebound, tenderness Gentrourinary exam: PRESENT: other - Left side scrotum is significantly swollen. Extremities exam: PRESENT: full ROM. ABSENT: calf tenderness, clubbing, pedal edema Neurological exam: PRESENT: alert, awake, oriented to person, oriented to place , oriented to time, oriented to situation, CN II-XII grossly intact. ABSENT: motor sensory deficit Psychiatric exam: PRESENT: appropriate affect, normal mood. ABSENT: homicidal ideation, suicidal ideation Results Laboratory Results: 03/28/18 06:27 03/28/18 06:27 03/27/18 03/27/18 03/28/18 15:25 15:25 06:27 WBC 21.3 H 19.8 H RBC 4.47 4.52 Hgb 13.7 13.8 Hct 39.8 39.9 MCV 89 88 MCH 30.7 30.5 MCHC 34.5 34.5 RDW 12.7 12.9 Plt Count 268 273 Seg Neutrophils % Not Reportable 84.3 H Lymphocytes % Not Reportable 8.0 L Monocytes % Not Reportable 7.3 Eosinophils % Not Reportable 0.1 Basophils % Not Reportable 0.3 Absolute Neutrophils Not Reportable 16.7 H Absolute Lymphocytes Not Reportable 1.6 Absolute Monocytes Not Reportable 1.4 Absolute Eosinophils Not Reportable 0.0 Absolute Basophils Not Reportable 0.1 Sodium 133.3 L Potassium 4.4 Chloride 99 Carbon Dioxide 26 Anion Gap 8 BUN 21 H Creatinine 1.15 Est GFR ( Amer) > 60 Est GFR (Non-Af Amer) > 60 Glucose 197 H Calcium 8.2 L Magnesium 1.6 Total Bilirubin 0.4 AST 11 L ALT 21 Alkaline Phosphatase 86 Total Protein 6.0 L Albumin 2.8 L 03/28/18 06:27 WBC RBC Hgb Hct MCV MCH MCHC RDW Plt Count Seg Neutrophils % Lymphocytes % Monocytes % Eosinophils % Basophils % Absolute Neutrophils Absolute Lymphocytes Absolute Monocytes Absolute Eosinophils Absolute Basophils Sodium 137.3 Potassium 4.2 Chloride 104 Carbon Dioxide 25 Anion Gap 8 BUN 17 Creatinine 0.80 Est GFR ( Amer) > 60 Est GFR (Non-Af Amer) > 60 Glucose 200 H Calcium 8.2 L Magnesium Total Bilirubin AST ALT Alkaline Phosphatase Total Protein Albumin 03/27/18 03/27/18 00:21 06:31 Troponin I < 0.012 NT-Pro-B Natriuret Pep 287 Impressions: Chest X-Ray 03/26/18 19:02 IMPRESSION: NO ACUTE RADIOGRAPHIC FINDING IN THE CHEST. Assessment & Plan - Diagnosis (1) Scrotal abscess Is this a current diagnosis for this admission?: Yes Plan: 03/27/2018-patient came in with left-sided scrotal abscess status post I&D was done. Scrotal cultures are pending blood cultures are pending. I started him on Unasyn 3 g IV every 6 hours. Pain management as per the surgical team. After IV fluids. 03/28/2018-is admitted with scrotal abscess status post I&D was done as per the surgical team scrotum was taped very much swollen but was clean. He is getting Unasyn. Cultures are pending. Cultures came back positive for Peptostreptococcus and sensitivity to Unasyn. (2) Smoker Is this a current diagnosis for this admission?: Yes Plan: 03/27/2018 patient has history of smoking 3 packs/day. Smoking counseling was advised and smoking counseling was provided for more than 10 minutes. Advised to quit smoking. 03/28/2018 patient smokes more than 3 packs/day. Smoking counseling was provided for more than 10 minutes today again. (3) Type 2 diabetes mellitus Is this a current diagnosis for this admission?: Yes Plan: 03/27/2018 patient is given the history of diabetes mellitus. But is not in any home medications. His blood sugars are running high during the hospital admission. Latest blood sugar is 242. I am going to check his hemoglobin A1c. He is going to be on insulin sliding scale before meals and at bedtime. Dietary consult is going to be requested. Diet and exercise was advised. 03/28/2018 patient history of diabetes mellitus not on any home medications. He is on insulin sliding scale before meals and at bedtime. Hemoglobin A1c is 8.4. I started him on glipizide 2.5 mg p.o. twice daily. Latest blood sugar is 228. Continue the present management continue to check his blood sugars on a regular basis. (4) Tachycardia Is this a current diagnosis for this admission?: Yes Plan: 03/27/2018 patient's heart rate is around 108. Tachycardia may be secondary to sepsis/pain. Patient's heart rate is 98 today still tachycardic. May be secondary to pain. (5) Hypertension Is this a current diagnosis for this admission?: Yes Plan: 03/27/2018 patient given the history of hypertension but is not any home medications. I started him on lisinopril 10 mg p.o. nightly. I am going to adjust his blood pressure medications based on the daily readings. 03/28/2018 patient has history of hypertension not on any home medications. He was started on lisinopril 10 mg p.o. daily yesterday today's blood pressure is 134/75. Well controlled. - Time Time Spent with patient: 15-24 minutes Smoking Cessation Education: 3 to 10 minutes Medications reviewed and adjusted accordingly: Yes Anticipated discharge: Home
[2018-03-28] MEDS: GLIPIZIDE XL 2.5 MG TAB.ER.24 PO SCH (16:21)
[2018-03-28] MEDS: SIMVASTATIN 10 MG TABLET PO SCH (21:56)
[2018-03-29] MEDS: AMPICILLIN SODIUM/SULBACTAM NA 3 GM in NORMAL SALINE 100 ML IV SCH ×5 (00:47→23:19)
[2018-03-29] MEDS: HEPARIN SOD (PORCINE) 5,000 UNIT/ML 1 ML SYRINGE SUBCUT SCH ×3 (05:17→21:36)
[2018-03-29] MEDS: KETOROLAC TROMETHAMINE INJ/PF 30 MG/1 ML SDV IV PRN ×2 (07:58→17:20)
[2018-03-29] MEDS: GLIPIZIDE XL 2.5 MG TAB.ER.24 PO SCH (08:20)
[2018-03-29] MEDS: IPRATROPIUM/ALBUTEROL 0.5-2.5 MG/3 ML AMPUL NEB SCH ×2 (08:56→20:14)
[2018-03-29] MEDS: NICOTINE 21 MG/24 HR PATCH.TD24 TD SCH (12:06)
[2018-03-29] MEDS: INSULIN LISPRO 100 UNIT/ML 3 ML VIAL SUBCUT PRN (12:07)
[2018-03-29] MEDS: LISINOPRIL 10 MG TABLET PO SCH (12:07)
[2018-03-29] MEDS: MORPHINE SULFATE 10 MG/ML INJ IV PRN ×2 (12:10→21:37)
[2018-03-29] MEDS ORDERED: NICOTINE 21 MG/24 HR PATCH.TD24 TD PRN (13:45)
--- NOTE | 2018-03-29 13:48 | PDOC PROGRESS REPORT ---
Subjective Progress Note for:: 03/29/18 Subjective:: 52-year-old male with history of diabetes hypertension admitted with a left scrotal abscess status post I&D was done. Medical consult was requested for controlling blood sugars and blood pressure. Other than the problem of the scrotum patient is asymptomatic. His main concern is the swollen scrotum. Patient T-max is 99. 03/29/2018 patient has a low-grade fever of 100.4 this morning. Latest blood sugar is 202. Blood pressures are relatively controlled. Other than the pain around the scrotal region patient denies any other complaints. Reason For Visit: LEFT GROIN AND SCROTAL ABSCESS,POSSIBLE SEPSIS Physical Exam Vital Signs: Temp Pulse Resp BP Pulse Ox 98.3 F 97 17 145/74 H 94 03/29/18 11:05 03/29/18 11:05 03/29/18 11:05 03/29/18 11:05 03/29/18 11:05 Intake & Output 03/28/18 03/29/18 03/30/18 06:59 06:59 06:59 Intake Total 1224 1374 Output Total 1700 600 Balance -476 774 Weight 124.4 kg 124.4 kg General appearance: PRESENT: no acute distress Head exam: PRESENT: atraumatic Eye exam: PRESENT: PERRLA Neck exam: ABSENT: carotid bruit, JVD, lymphadenopathy, thyromegaly Respiratory exam: PRESENT: clear to auscultation raine. ABSENT: rales, rhonchi, wheezes Cardiovascular exam: PRESENT: RRR. ABSENT: diastolic murmur, rubs, systolic murmur Pulses: PRESENT: normal dorsalis pedis pul GI/Abdominal exam: PRESENT: normal bowel sounds, soft. ABSENT: distended, guarding, mass, organolmegaly, rebound, tenderness Gentrourinary exam: PRESENT: other - Large scrotal area may be because of the packing. Gaping wound. Extremities exam: PRESENT: full ROM. ABSENT: calf tenderness, clubbing, pedal edema Neurological exam: PRESENT: alert, awake, oriented to person, oriented to place , oriented to time, oriented to situation, CN II-XII grossly intact. ABSENT: motor sensory deficit Psychiatric exam: PRESENT: appropriate affect, normal mood. ABSENT: homicidal ideation, suicidal ideation Results Laboratory Results: 03/28/18 06:27 03/28/18 06:27 Impressions: Chest X-Ray 03/26/18 19:02 IMPRESSION: NO ACUTE RADIOGRAPHIC FINDING IN THE CHEST. Assessment & Plan - Diagnosis (1) Scrotal abscess Is this a current diagnosis for this admission?: Yes Plan: 03/27/2018-patient came in with left-sided scrotal abscess status post I&D was done. Scrotal cultures are pending blood cultures are pending. I started him on Unasyn 3 g IV every 6 hours. Pain management as per the surgical team. After IV fluids. 03/28/2018-is admitted with scrotal abscess status post I&D was done as per the surgical team scrotum was taped very much swollen but was clean. He is getting Unasyn. Cultures are pending. Cultures came back positive for Peptostreptococcus and sensitivity to Unasyn. 03/29/2018-the cultures from the scrotal area shows gram-positive cocci in clusters, Peptostreptococcus. Patient is on Unasyn. He had a low-grade fever of 100.4. Blood cultures are negative. Surgical team are the primary following the patient. (2) Smoker Is this a current diagnosis for this admission?: Yes Plan: 03/27/2018 patient has history of smoking 3 packs/day. Smoking counseling was advised and smoking counseling was provided for more than 10 minutes. Advised to quit smoking. 03/28/2018 patient smokes more than 3 packs/day. Smoking counseling was provided for more than 10 minutes today again. 03/29/2018 patient is a heavy chronic smoker. Again smoking counseling was provided. He is getting nicotine patch. (3) Type 2 diabetes mellitus Is this a current diagnosis for this admission?: Yes Plan: 03/27/2018 patient is given the history of diabetes mellitus. But is not in any home medications. His blood sugars are running high during the hospital admission. Latest blood sugar is 242. I am going to check his hemoglobin A1c. He is going to be on insulin sliding scale before meals and at bedtime. Dietary consult is going to be requested. Diet and exercise was advised. 03/28/2018 patient history of diabetes mellitus not on any home medications. He is on insulin sliding scale before meals and at bedtime. Hemoglobin A1c is 8.4. I started him on glipizide 2.5 mg p.o. twice daily. Latest blood sugar is 228. Continue the present management continue to check his blood sugars on a regular basis. 03/29/2018-his blood sugars are 202. He is on insulin sliding scale before meals and at bedtime. Also getting glipizide 2.5 mg p.o. twice daily. His hemoglobin A1c is 8.4. I increased her glipizide to 5 mg p.o. twice daily. (4) Tachycardia Is this a current diagnosis for this admission?: Yes Plan: 03/27/2018 patient's heart rate is around 108. Tachycardia may be secondary to sepsis/pain. Patient's heart rate is 98 today still tachycardic. May be secondary to pain. 03/29/2018 patient heart rate is 97. He still tachycardic may be secondary to the pain. (5) Hypertension Is this a current diagnosis for this admission?: Yes Plan: 03/27/2018 patient given the history of hypertension but is not any home medications. I started him on lisinopril 10 mg p.o. nightly. I am going to adjust his blood pressure medications based on the daily readings. 03/28/2018 patient has history of hypertension not on any home medications. He was started on lisinopril 10 mg p.o. daily yesterday today's blood pressure is 134/75. Well controlled. 03/29/2018-blood pressure today is 145/74. Relatively controlled. He is on lisinopril 10 mg p.o. daily. Continue the present management. - Time Time Spent with patient: Less than 15 minutes Smoking Cessation Education: over 10 minutes Medications reviewed and adjusted accordingly: Yes Anticipated discharge: Home
[2018-03-29 15:21] LABS: ABSOLUTE BASOPHILS # (AUTO) 0.2 10^3/uL (0.0-0.2); ABSOLUTE EOSINOPHILS # (AUTO) 0.1 10^3/uL (0.0-0.6); ABSOLUTE LYMPHOCYTES (AUTO) 1.6 10^3/uL (0.5-4.7); ABSOLUTE MONOCYTES (AUTO) 1.4 10^3/uL (0.1-1.4); ABSOLUTE NEUT (AUTO) 12.3 10^3/uL (1.7-8.2); BASOPHILS % (AUTO) 1.3 % (0-2); EOSINOPHILS % (AUTO) 0.5 % (0-6); HEMATOCRIT 38.8 % (37.9-51.0); HEMOGLOBIN 13.1 g/dL (13.5-17.0); LYMPHOCYTES % (AUTO) 10.5 % (13-45); MEAN CORPUSCULAR HEMOGLOBIN 30.1 pg (27.0-33.4); MEAN CORPUSCULAR HGB CONC 33.9 g/dL (32.0-36.0); MEAN CORPUSCULAR VOLUME 89 fl (80-97); PLATELET COUNT 305 10^3/uL (150-450); RED BLOOD COUNT 4.37 10^6/uL (4.35-5.55); RED CELL DISTRIBUTION WIDTH 12.9 % (11.5-14.0); SEGMENTED NEUTROPHILS % (AUTO) 78.7 % (42-78); TOTAL CELLS COUNTED % (AUTO) 100 %; WHITE BLOOD COUNT 15.6 10^3/uL (4.0-10.5)
[2018-03-29] MEDS: GLIPIZIDE 5 MG TABLET PO SCH (17:21)
--- NOTE | 2018-03-29 17:33 | PDOC PROGRESS REPORT ---
Subjective Progress Note for:: 03/29/18 Subjective:: left groin/scrotal pains Reason For Visit: LEFT GROIN AND SCROTAL ABSCESS,POSSIBLE SEPSIS Physical Exam Vital Signs: Temp Pulse Resp BP Pulse Ox 99.0 F 99 17 147/86 H 91 L 03/29/18 15:13 03/29/18 15:13 03/29/18 15:13 03/29/18 15:13 03/29/18 15:13 Intake & Output 03/28/18 03/29/18 03/30/18 06:59 06:59 06:59 Intake Total 1224 1374 100 Output Total 1700 600 Balance -476 774 100 Weight 124.4 kg 124.4 kg Exam: packing removed and repacked. Small amount of drainage on the packing. Left scrotum still inflamed and tender but obvious collection. Results Laboratory Results: 03/29/18 14:35 03/28/18 06:27 03/29/18 14:35 WBC 15.6 H RBC 4.37 Hgb 13.1 L Hct 38.8 MCV 89 MCH 30.1 MCHC 33.9 RDW 12.9 Plt Count 305 Seg Neutrophils % 78.7 H Lymphocytes % 10.5 L Monocytes % 9.0 Eosinophils % 0.5 Basophils % 1.3 Absolute Neutrophils 12.3 H Absolute Lymphocytes 1.6 Absolute Monocytes 1.4 Absolute Eosinophils 0.1 Absolute Basophils 0.2 Impressions: Chest X-Ray 03/26/18 19:02 IMPRESSION: NO ACUTE RADIOGRAPHIC FINDING IN THE CHEST. Assessment & Plan - Time Time Spent with patient: 15-24 minutes - Inpatient Certification Medical Necessity: Need for Pain Control, Need for IV Antibiotics, Risk of Complication if Not Cared For in Hospital - Plan Summary Plan Summary: Continue wound care and IV antibiotics Monitor and control Blood Sugar
[2018-03-29] MEDS: SIMVASTATIN 10 MG TABLET PO SCH (21:37)
[2018-03-30] MEDS: KETOROLAC TROMETHAMINE INJ/PF 30 MG/1 ML SDV IV PRN ×2 (02:47→13:05)
[2018-03-30] MEDS: AMPICILLIN SODIUM/SULBACTAM NA 3 GM in NORMAL SALINE 100 ML IV SCH ×3 (06:06→18:26)
[2018-03-30] MEDS: HEPARIN SOD (PORCINE) 5,000 UNIT/ML 1 ML SYRINGE SUBCUT SCH ×3 (06:06→22:00)
[2018-03-30] MEDS: IPRATROPIUM/ALBUTEROL 0.5-2.5 MG/3 ML AMPUL NEB SCH ×2 (08:08→20:34)
--- NOTE | 2018-03-30 10:14 | PDOC PROGRESS REPORT ---
Subjective Progress Note for:: 03/30/18 Subjective:: Pain persists but improved. Has not had a shower Reason For Visit: LEFT GROIN AND SCROTAL ABSCESS,POSSIBLE SEPSIS Physical Exam Vital Signs: Temp Pulse Resp BP Pulse Ox 98.6 F 90 18 164/92 H 92 03/30/18 07:50 03/30/18 08:08 03/30/18 08:08 03/30/18 07:50 03/30/18 08:08 Intake & Output 03/29/18 03/30/18 03/31/18 06:59 06:59 06:59 Intake Total 1374 1474 Output Total 600 Balance 774 1474 Weight 124.4 kg 124.4 kg General appearance: PRESENT: no acute distress Gentrourinary exam: PRESENT: other - Left groin examined. Operative incision open, minimal fibrinous debris, no active purulence. Some disc coloration of the left hemiscrotum with a small mottled area of the skin, not full-thickness necrosis; left inguinal area with some area Results Laboratory Results: 03/29/18 14:35 03/28/18 06:27 03/29/18 14:35 WBC 15.6 H RBC 4.37 Hgb 13.1 L Hct 38.8 MCV 89 MCH 30.1 MCHC 33.9 RDW 12.9 Plt Count 305 Seg Neutrophils % 78.7 H Lymphocytes % 10.5 L Monocytes % 9.0 Eosinophils % 0.5 Basophils % 1.3 Absolute Neutrophils 12.3 H Absolute Lymphocytes 1.6 Absolute Monocytes 1.4 Absolute Eosinophils 0.1 Absolute Basophils 0.2 Impressions: Chest X-Ray 03/26/18 19:02 IMPRESSION: NO ACUTE RADIOGRAPHIC FINDING IN THE CHEST. Assessment & Plan - Diagnosis (1) Scrotal abscess Is this a current diagnosis for this admission?: Yes Plan: Impression: Postoperative day 4 status post debridement and evacuation of necrotizing hemiscrotal soft tissue infection, growing gram-positive cocci and Peptostreptococcus on Unasyn with clinical improvement. Accommodations: 1. Continue intravenous antibiotics 2. Stool soft 3. Get patient is showering twice a day. 4. Hopefully home soon next 24-48 hours. (2) Smoker Is this a current diagnosis for this admission?: Yes (3) Type 2 diabetes mellitus Is this a current diagnosis for this admission?: Yes (4) Cellulitis Qualifiers: Site of cellulitis: unspecified site Qualified Code(s): L03.90 - Cellulitis , unspecified Is this a current diagnosis for this admission?: Yes (5) Leukocytosis Qualifiers: Leukocytosis type: unspecified Qualified Code(s): D72.829 - Elevated white blood cell count, unspecified Is this a current diagnosis for this admission?: Yes (6) Tachycardia Is this a current diagnosis for this admission?: Yes
[2018-03-30] MEDS: LISINOPRIL 10 MG TABLET PO SCH (10:42)
[2018-03-30] MEDS: NICOTINE 21 MG/24 HR PATCH.TD24 TD SCH (10:43)
[2018-03-30] MEDS: MORPHINE SULFATE 10 MG/ML INJ IV PRN ×3 (10:44→20:33)
[2018-03-30] MEDS: GLIPIZIDE 5 MG TABLET PO SCH ×2 (10:44→18:25)
--- NOTE | 2018-03-30 11:33 | PDOC PROGRESS REPORT ---
Subjective Progress Note for:: 03/30/18 Subjective:: 52-year-old male with history of diabetes hypertension admitted with a left scrotal abscess status post I&D was done. Medical consult was requested for controlling blood sugars and blood pressure. Other than the problem of the scrotum patient is asymptomatic. His main concern is the swollen scrotum. Patient T-max is 99. 03/29/2018 patient has a low-grade fever of 100.4 this morning. Latest blood sugar is 202. Blood pressures are relatively controlled. Other than the pain around the scrotal region patient denies any other complaints. 03/30/2018-patient has a T-max of 99. He still complaining of a lot of pain in his scrotal area. Other than that he said he is doing better. Acute events in the last 24 hours. Reason For Visit: LEFT GROIN AND SCROTAL ABSCESS,POSSIBLE SEPSIS Physical Exam Vital Signs: Temp Pulse Resp BP Pulse Ox 98.6 F 90 18 164/92 H 92 03/30/18 07:50 03/30/18 08:08 03/30/18 08:08 03/30/18 07:50 03/30/18 08:08 Intake & Output 03/29/18 03/30/18 03/31/18 06:59 06:59 06:59 Intake Total 1374 1474 100 Output Total 600 Balance 774 1474 100 Weight 124.4 kg 124.4 kg General appearance: PRESENT: no acute distress Head exam: PRESENT: atraumatic Eye exam: PRESENT: PERRLA Mouth exam: PRESENT: moist Neck exam: ABSENT: carotid bruit, JVD, lymphadenopathy, thyromegaly Respiratory exam: PRESENT: clear to auscultation raine. ABSENT: rales, rhonchi, wheezes Cardiovascular exam: PRESENT: RRR. ABSENT: diastolic murmur, rubs, systolic murmur Pulses: PRESENT: normal dorsalis pedis pul GI/Abdominal exam: PRESENT: normal bowel sounds, soft. ABSENT: distended, guarding, mass, organolmegaly, rebound, tenderness Gentrourinary exam: PRESENT: other - Left scrotum was swollen and it was packed. Neurological exam: PRESENT: alert, awake, oriented to person, oriented to place , oriented to time, oriented to situation, CN II-XII grossly intact. ABSENT: motor sensory deficit Psychiatric exam: PRESENT: appropriate affect, normal mood. ABSENT: homicidal ideation, suicidal ideation Results Laboratory Results: 03/29/18 14:35 03/28/18 06:27 03/29/18 14:35 WBC 15.6 H RBC 4.37 Hgb 13.1 L Hct 38.8 MCV 89 MCH 30.1 MCHC 33.9 RDW 12.9 Plt Count 305 Seg Neutrophils % 78.7 H Lymphocytes % 10.5 L Monocytes % 9.0 Eosinophils % 0.5 Basophils % 1.3 Absolute Neutrophils 12.3 H Absolute Lymphocytes 1.6 Absolute Monocytes 1.4 Absolute Eosinophils 0.1 Absolute Basophils 0.2 Impressions: Chest X-Ray 03/26/18 19:02 IMPRESSION: NO ACUTE RADIOGRAPHIC FINDING IN THE CHEST. Assessment & Plan - Diagnosis (1) Scrotal abscess Is this a current diagnosis for this admission?: Yes Plan: 03/27/2018-patient came in with left-sided scrotal abscess status post I&D was done. Scrotal cultures are pending blood cultures are pending. I started him on Unasyn 3 g IV every 6 hours. Pain management as per the surgical team. off IV fluids. 03/28/2018-is admitted with scrotal abscess status post I&D was done as per the surgical team scrotum was taped very much swollen but was clean. He is getting Unasyn. Cultures are pending. Cultures came back positive for Peptostreptococcus and sensitivity to Unasyn. 03/29/2018-the cultures from the scrotal area shows gram-positive cocci in clusters, Peptostreptococcus. Patient is on Unasyn. He had a low-grade fever of 100.4. Blood cultures are negative. Surgical team are the primary following the patient. 03/30/2018 cultures from the scrotal area shows gram-positive cocci in clusters. Also Peptostreptococcus. Patient is on Unasyn. Patient is afebrile in the last 24 hours. Pain management as per the surgical team. Patient is describing the pain scale of 7 / 10. (2) Smoker Is this a current diagnosis for this admission?: Yes (3) Type 2 diabetes mellitus Is this a current diagnosis for this admission?: Yes Plan: 03/27/2018 patient is given the history of diabetes mellitus. But is not in any home medications. His blood sugars are running high during the hospital admission. Latest blood sugar is 242. I am going to check his hemoglobin A1c. He is going to be on insulin sliding scale before meals and at bedtime. Dietary consult is going to be requested. Diet and exercise was advised. 03/28/2018 patient history of diabetes mellitus not on any home medications. He is on insulin sliding scale before meals and at bedtime. Hemoglobin A1c is 8.4. I started him on glipizide 2.5 mg p.o. twice daily. Latest blood sugar is 228. Continue the present management continue to check his blood sugars on a regular basis. 03/29/2018-his blood sugars are 202. He is on insulin sliding scale before meals and at bedtime. Also getting glipizide 2.5 mg p.o. twice daily. His hemoglobin A1c is 8.4. I increased her glipizide to 5 mg p.o. twice daily. 03/30/2018 patient's blood sugar is 134 today. They consistently below 200s. He was on glipizide 5 mg p.o. twice a day and also insulin sliding scale before meals and at bedtime. We will continue the present management. (4) Tachycardia Is this a current diagnosis for this admission?: Yes Plan: 03/27/2018 patient's heart rate is around 108. Tachycardia may be secondary to sepsis/pain. Patient's heart rate is 98 today still tachycardic. May be secondary to pain. 03/29/2018 patient heart rate is 97. He still tachycardic may be secondary to the pain. 03/30/2018 heart rate is in the 90s. Improving tachycardia may be secondary to pain (5) Hypertension Is this a current diagnosis for this admission?: Yes Plan: 03/27/2018 patient given the history of hypertension but is not any home medications. I started him on lisinopril 10 mg p.o. nightly. I am going to adjust his blood pressure medications based on the daily readings. 03/28/2018 patient has history of hypertension not on any home medications. He was started on lisinopril 10 mg p.o. daily yesterday today's blood pressure is 134/75. Well controlled. 03/29/2018-blood pressure today is 145/74. Relatively controlled. He is on lisinopril 10 mg p.o. daily. Continue the present management. 03/30/2018 patient blood pressure is elevated today 164/92. It may be secondary to pain. Presently he he is on lisinopril 10 mg p.o. daily. I am going to add amlodipine 2.5 mg to the regimen. We will continue monitor his blood pressures. - Time Time Spent with patient: Less than 15 minutes Smoking Cessation Education: 3 to 10 minutes Medications reviewed and adjusted accordingly: Yes Anticipated discharge: Home
[2018-03-30] MEDS ORDERED: DOCUSATE SODIUM 100 MG CAPSULE PO ONE (13:00)
[2018-03-30] MEDS ORDERED: DOCUSATE SODIUM 100 MG CAPSULE PO SCH (18:00)
[2018-03-30] MEDS: DOCUSATE SODIUM 100 MG CAPSULE PO SCH (18:25)
[2018-03-30] MEDS: SIMVASTATIN 10 MG TABLET PO SCH (22:01)
[2018-03-31] MEDS: AMPICILLIN SODIUM/SULBACTAM NA 3 GM in NORMAL SALINE 100 ML IV SCH ×5 (00:28→23:12)
[2018-03-31] MEDS: MORPHINE SULFATE 10 MG/ML INJ IV PRN ×5 (01:23→23:19)
[2018-03-31] MEDS: HEPARIN SOD (PORCINE) 5,000 UNIT/ML 1 ML SYRINGE SUBCUT SCH ×3 (05:51→22:10)
[2018-03-31] MEDS: GLIPIZIDE 5 MG TABLET PO SCH (08:20)
[2018-03-31] MEDS: IPRATROPIUM/ALBUTEROL 0.5-2.5 MG/3 ML AMPUL NEB SCH ×2 (08:55→20:41)
[2018-03-31] MEDS: DOCUSATE SODIUM 100 MG CAPSULE PO SCH ×2 (09:44→17:36)
[2018-03-31] MEDS: NICOTINE 21 MG/24 HR PATCH.TD24 TD SCH (09:44)
[2018-03-31] MEDS: LISINOPRIL 10 MG TABLET PO SCH (09:45)
[2018-03-31] MEDS ORDERED: AMLODIPINE BESYLATE 2.5 MG TABLET PO SCH (10:00)
--- NOTE | 2018-03-31 13:32 | PDOC PROGRESS REPORT ---
Subjective Progress Note for:: 03/31/18 Subjective:: 52-year-old male with history of diabetes hypertension admitted with a left scrotal abscess status post I&D was done. Medical consult was requested for controlling blood sugars and blood pressure. Other than the problem of the scrotum patient is asymptomatic. His main concern is the swollen scrotum. Patient T-max is 99. 03/29/2018 patient has a low-grade fever of 100.4 this morning. Latest blood sugar is 202. Blood pressures are relatively controlled. Other than the pain around the scrotal region patient denies any other complaints. 03/30/2018-patient has a T-max of 99. He still complaining of a lot of pain in his scrotal area. Other than that he said he is doing better. Acute events in the last 24 hours. 03/31/2018 T-max is 98. Doing well. Still complaining of pain in the surgical area. Reason For Visit: LEFT GROIN AND SCROTAL ABSCESS,POSSIBLE SEPSIS Physical Exam Vital Signs: Temp Pulse Resp BP Pulse Ox 98.2 F 93 18 149/92 H 95 03/31/18 11:27 03/31/18 11:27 03/31/18 11:27 03/31/18 11:27 03/31/18 11:27 Intake & Output 03/30/18 03/31/18 04/01/18 06:59 06:59 06:59 Intake Total 1474 1460 Output Total 630 Balance 1474 830 Weight 124.4 kg 121.8 kg General appearance: PRESENT: no acute distress Head exam: PRESENT: atraumatic Eye exam: PRESENT: PERRLA Neck exam: ABSENT: carotid bruit, JVD, lymphadenopathy, thyromegaly Respiratory exam: PRESENT: clear to auscultation raine. ABSENT: rales, rhonchi, wheezes Cardiovascular exam: PRESENT: RRR. ABSENT: diastolic murmur, rubs, systolic murmur GI/Abdominal exam: PRESENT: normal bowel sounds, soft. ABSENT: distended, guarding, mass, organolmegaly, rebound, tenderness Neurological exam: PRESENT: alert, awake, oriented to person, oriented to place , oriented to time, oriented to situation, CN II-XII grossly intact. ABSENT: motor sensory deficit Psychiatric exam: PRESENT: appropriate affect, normal mood. ABSENT: homicidal ideation, suicidal ideation Results Laboratory Results: 03/29/18 14:35 03/28/18 06:27 Impressions: Chest X-Ray 03/26/18 19:02 IMPRESSION: NO ACUTE RADIOGRAPHIC FINDING IN THE CHEST. Assessment & Plan - Diagnosis (1) Scrotal abscess Is this a current diagnosis for this admission?: Yes Plan: 03/27/2018-patient came in with left-sided scrotal abscess status post I&D was done. Scrotal cultures are pending blood cultures are pending. I started him on Unasyn 3 g IV every 6 hours. Pain management as per the surgical team. off IV fluids. 03/28/2018-is admitted with scrotal abscess status post I&D was done as per the surgical team scrotum was taped very much swollen but was clean. He is getting Unasyn. Cultures are pending. Cultures came back positive for Peptostreptococcus and sensitivity to Unasyn. 03/29/2018-the cultures from the scrotal area shows gram-positive cocci in clusters, Peptostreptococcus. Patient is on Unasyn. He had a low-grade fever of 100.4. Blood cultures are negative. Surgical team are the primary following the patient. 03/30/2018 cultures from the scrotal area shows gram-positive cocci in clusters. Also Peptostreptococcus. Patient is on Unasyn. Patient is afebrile in the last 24 hours. Pain management as per the surgical team. Patient is describing the pain scale of 7 / 10. 03/31/2018 the cultures came back positive for staph hemolyticus, Streptococcus. To be due to Unasyn and clindamycin. Added clindamycin 300 mg p.o. every 6 hours today. (2) Smoker Is this a current diagnosis for this admission?: Yes Plan: 03/27/2018 patient has history of smoking 3 packs/day. Smoking counseling was advised and smoking counseling was provided for more than 10 minutes. Advised to quit smoking. 03/28/2018 patient smokes more than 3 packs/day. Smoking counseling was provided for more than 10 minutes today again. 03/29/2018 patient is a heavy chronic smoker. Again smoking counseling was provided. He is getting nicotine patch. 03/31/2018-patient is a chronic smoker and be giving nicotine patch daily. (3) Type 2 diabetes mellitus Is this a current diagnosis for this admission?: Yes Plan: 03/27/2018 patient is given the history of diabetes mellitus. But is not in any home medications. His blood sugars are running high during the hospital admission. Latest blood sugar is 242. I am going to check his hemoglobin A1c. He is going to be on insulin sliding scale before meals and at bedtime. Dietary consult is going to be requested. Diet and exercise was advised. 03/28/2018 patient history of diabetes mellitus not on any home medications. He is on insulin sliding scale before meals and at bedtime. Hemoglobin A1c is 8.4. I started him on glipizide 2.5 mg p.o. twice daily. Latest blood sugar is 228. Continue the present management continue to check his blood sugars on a regular basis. 03/29/2018-his blood sugars are 202. He is on insulin sliding scale before meals and at bedtime. Also getting glipizide 2.5 mg p.o. twice daily. His hemoglobin A1c is 8.4. I increased her glipizide to 5 mg p.o. twice daily. 03/30/2018 patient's blood sugar is 134 today. They consistently below 200s. He was on glipizide 5 mg p.o. twice a day and also insulin sliding scale before meals and at bedtime. We will continue the present management. 03/31/2018-sugar is 197 today. Glipizide 5 mg p.o. twice a day and also insulin sliding scale before meals and at bedtime. Hemoglobin A1c is 8.4. Glipizide was increased to 10 mg p.o. twice daily. (4) Tachycardia Is this a current diagnosis for this admission?: Yes Plan: 03/27/2018 patient's heart rate is around 108. Tachycardia may be secondary to sepsis/pain. Patient's heart rate is 98 today still tachycardic. May be secondary to pain. 03/29/2018 patient heart rate is 97. He still tachycardic may be secondary to the pain. 03/30/2018 heart rate is in the 90s. Improving tachycardia may be secondary to pain 03/31/2018 patient heart rate is 93 . We will continue to monitor the cardiac rhythm. (5) Hypertension Is this a current diagnosis for this admission?: Yes Plan: 03/27/2018 patient given the history of hypertension but is not any home medications. I started him on lisinopril 10 mg p.o. nightly. I am going to adjust his blood pressure medications based on the daily readings. 03/28/2018 patient has history of hypertension not on any home medications. He was started on lisinopril 10 mg p.o. daily yesterday today's blood pressure is 134/75. Well controlled. 03/29/2018-blood pressure today is 145/74. Relatively controlled. He is on lisinopril 10 mg p.o. daily. Continue the present management. 03/30/2018 patient blood pressure is elevated today 164/92. It may be secondary to pain. Presently he he is on lisinopril 10 mg p.o. daily. I am going to add amlodipine 2.5 mg to the regimen. We will continue monitor his blood pressures. 03/31/2018 patient's latest blood pressure is 149/92. Patient is on lisinopril 10 mg daily and amlodipine 2.5 mg daily and increased amlodipine to 5 mg daily. - Time Time Spent with patient: 15-24 minutes Smoking Cessation Education: over 10 minutes Medications reviewed and adjusted accordingly: Yes Anticipated discharge: Home
--- NOTE | 2018-03-31 16:58 | PDOC PROGRESS REPORT ---
Subjective Progress Note for:: 03/31/18 Subjective:: pains left groin and scrotum Reason For Visit: LEFT GROIN AND SCROTAL ABSCESS,POSSIBLE SEPSIS Physical Exam Vital Signs: Temp Pulse Resp BP Pulse Ox 99.2 F 94 18 145/81 H 94 03/31/18 15:35 03/31/18 15:35 03/31/18 15:35 03/31/18 15:35 03/31/18 15:35 Intake & Output 03/30/18 03/31/18 04/01/18 06:59 06:59 06:59 Intake Total 1474 1460 Output Total 630 Balance 1474 830 Weight 124.4 kg 121.8 kg Exam: still erythematous left groin and scrotum areas.? fluctuant area left groin. Still very tender scrotum. Results Laboratory Results: 03/29/18 14:35 03/28/18 06:27 Impressions: Chest X-Ray 03/26/18 19:02 IMPRESSION: NO ACUTE RADIOGRAPHIC FINDING IN THE CHEST. Assessment & Plan - Time Time Spent with patient: 15-24 minutes - Inpatient Certification Medical Necessity: Need for Pain Control, Need for IV Antibiotics - Plan Summary Plan Summary: Will keep NPO tonight and have Dr Roy re-evaluate for further need for I&D Continue packing original I&D site left scrotum/groin site POD #[id number]
[2018-03-31] MEDS: GLIPIZIDE 10 MG TABLET PO SCH (17:36)
[2018-03-31] MEDS: CLINDAMYCIN HCL 150 MG CAPSULE PO SCH ×2 (17:37→23:12)
[2018-03-31] MEDS: KETOROLAC TROMETHAMINE INJ/PF 30 MG/1 ML SDV IV PRN (19:35)
[2018-03-31] MEDS: SIMVASTATIN 10 MG TABLET PO SCH (22:10)
[2018-04-01] MEDS: MORPHINE SULFATE 10 MG/ML INJ IV PRN ×3 (05:09→20:25)
[2018-04-01] MEDS: HEPARIN SOD (PORCINE) 5,000 UNIT/ML 1 ML SYRINGE SUBCUT SCH ×3 (05:10→21:59)
[2018-04-01] MEDS: AMPICILLIN SODIUM/SULBACTAM NA 3 GM in NORMAL SALINE 100 ML IV SCH ×3 (05:10→18:35)
[2018-04-01] MEDS: CLINDAMYCIN HCL 150 MG CAPSULE PO SCH ×3 (05:10→18:36)
[2018-04-01] MEDS: GLIPIZIDE 10 MG TABLET PO SCH ×2 (08:37→18:35)
[2018-04-01] MEDS: IPRATROPIUM/ALBUTEROL 0.5-2.5 MG/3 ML AMPUL NEB SCH ×2 (09:00→19:58)
[2018-04-01] MEDS: DOCUSATE SODIUM 100 MG CAPSULE PO SCH ×2 (10:47→18:35)
[2018-04-01] MEDS: NICOTINE 21 MG/24 HR PATCH.TD24 TD SCH ×2 (10:48→16:16)
[2018-04-01] MEDS: AMLODIPINE BESYLATE 5 MG TABLET PO SCH ×2 (10:49→16:16)
[2018-04-01] MEDS: LISINOPRIL 10 MG TABLET PO SCH ×2 (10:49→16:16)
[2018-04-01] MEDS ORDERED: MIDAZOLAM 2 MG/2 ML INJ ONE (12:15)
[2018-04-01] MEDS ORDERED: BUPIVACAINE HCL/DEX-WATER/PF 15 MG/2 ML AMPULE ONE (12:16)
[2018-04-01] MEDS ORDERED: IPRATROPIUM/ALBUTEROL 0.5-2.5 MG/3 ML AMPUL NEB ONE (12:21)
[2018-04-01] MEDS ORDERED: BUPIVACAINE HCL 0.25 % INJ/PF (2.5 MG/1 ML) 30 ML VIAL ONE (13:01)
[2018-04-01] MEDS ORDERED: LIDOCAINE 0.5% INJ-PF (5 MG/ML) 50 ML SDV ONE (13:02)
[2018-04-01] MEDS ORDERED: AMPICILLIN SOD/SULBACTAM 3 GM VIAL ONE (13:02)
--- NOTE | 2018-04-01 14:27 | Operative Report ---
Nonrecallable Operative Report DATE OF SURGERY: 04/01/18 PREOPERATIVE DIAGNOSIS: Persisting soft tissue and fascia infection of the scrotum status post I&D POSTOPERATIVE DIAGNOSIS: Same with purulent soft tissue infection of the scrotum OPERATION: 1. Excisional debridement and vigorous irrigation of skin, soft tissue, and fascia of the left, and central and right scrotum. 2. Placement of 2 loop [place] drains SURGEON: JESSICA JACKSON ANESTHESIA: Spinal TISSUE REMOVED OR ALTERED: Skin, subcutaneous tissue, fascia of the scrotum COMPLICATIONS: None ESTIMATED BLOOD LOSS: 75 cc INTRAOPERATIVE FINDINGS: See below PROCEDURE: Patient taken the main operating room where spinal anesthesia was induced. Patient was placed in the supine, frog-leg position, and scrotum prepped draped sterile fashion. Surgical plan surgical timeout conducted. Findings were significant for the previous left lateral hemiscrotal opening. There is purulent discharge coming from this opening, as well as the central scrotum and right scrotum. 2 additional incisions were made with large ellipses of skin removed from the left higher hemiscrotum, and the right central hemiscrotum. Underlying skin, subcutaneous tissue, pus and loculations excisionally debrided. The right testicle was in its anatomic position however the left testicle was essentially coming a floating testicle because of the extensive debridement in its vicinity. The testicle did appear viable however I did not incise it checked. I irrigated all 3 of these wounds which were all communicating with 8 L of pulse lavage. Cultures were obtained prior to irrigation. 2 large [place] drains were placed in a loop fashion tied in a knot so that all 3 incisions were opened widely. I felt that the degree of aggressiveness of today's debridement was satisfactory. All wounds packed with iodoform and Betadine soaked Kerlix packing. Patient will need to be taken back to the operating room for wound check tomorrow.
--- NOTE | 2018-04-01 14:56 | PDOC PROGRESS REPORT ---
Subjective Progress Note for:: 04/01/18 Subjective:: 52-year-old male with history of diabetes hypertension admitted with a left scrotal abscess status post I&D was done. Medical consult was requested for controlling blood sugars and blood pressure. Other than the problem of the scrotum patient is asymptomatic. His main concern is the swollen scrotum. Patient T-max is 99. 03/29/2018 patient has a low-grade fever of 100.4 this morning. Latest blood sugar is 202. Blood pressures are relatively controlled. Other than the pain around the scrotal region patient denies any other complaints. 03/30/2018-patient has a T-max of 99. He still complaining of a lot of pain in his scrotal area. Other than that he said he is doing better. Acute events in the last 24 hours. 03/31/2018 T-max is 98. Doing well. Still complaining of pain in the surgical area. 04/01/2018 patient went to the OR again for debridement. Afebrile. Reason For Visit: LEFT GROIN AND SCROTAL ABSCESS,POSSIBLE SEPSIS Physical Exam Vital Signs: Temp Pulse Resp BP Pulse Ox 97.8 F 90 15 136/90 H 94 04/01/18 14:19 04/01/18 14:49 04/01/18 14:49 04/01/18 14:49 04/01/18 14:49 Intake & Output 03/31/18 04/01/18 04/02/18 06:59 06:59 06:59 Intake Total 1460 1908 Output Total 630 Balance 830 1908 Weight 121.8 kg 122 kg General appearance: PRESENT: mild distress Head exam: PRESENT: atraumatic Eye exam: PRESENT: PERRLA Mouth exam: PRESENT: moist Neck exam: ABSENT: carotid bruit, JVD, lymphadenopathy, thyromegaly Respiratory exam: PRESENT: clear to auscultation raine. ABSENT: rales, rhonchi, wheezes Cardiovascular exam: PRESENT: RRR. ABSENT: diastolic murmur, rubs, systolic murmur GI/Abdominal exam: PRESENT: normal bowel sounds, soft. ABSENT: distended, guarding, mass, organolmegaly, rebound, tenderness Neurological exam: PRESENT: alert, awake, oriented to person, oriented to place , oriented to time, oriented to situation, CN II-XII grossly intact. ABSENT: motor sensory deficit Psychiatric exam: PRESENT: appropriate affect, normal mood. ABSENT: homicidal ideation, suicidal ideation Results Laboratory Results: 03/29/18 14:35 03/28/18 06:27 Impressions: Chest X-Ray 03/26/18 19:02 IMPRESSION: NO ACUTE RADIOGRAPHIC FINDING IN THE CHEST. Assessment & Plan - Diagnosis (1) Scrotal abscess Is this a current diagnosis for this admission?: Yes Plan: 03/27/2018-patient came in with left-sided scrotal abscess status post I&D was done. Scrotal cultures are pending blood cultures are pending. I started him on Unasyn 3 g IV every 6 hours. Pain management as per the surgical team. off IV fluids. 03/28/2018-is admitted with scrotal abscess status post I&D was done as per the surgical team scrotum was taped very much swollen but was clean. He is getting Unasyn. Cultures are pending. Cultures came back positive for Peptostreptococcus and sensitivity to Unasyn. 03/29/2018-the cultures from the scrotal area shows gram-positive cocci in clusters, Peptostreptococcus. Patient is on Unasyn. He had a low-grade fever of 100.4. Blood cultures are negative. Surgical team are the primary following the patient. 03/30/2018 cultures from the scrotal area shows gram-positive cocci in clusters. Also Peptostreptococcus. Patient is on Unasyn. Patient is afebrile in the last 24 hours. Pain management as per the surgical team. Patient is describing the pain scale of 7 / 10. 03/31/2018 the cultures came back positive for staph hemolyticus, Streptococcus. To be due to Unasyn and clindamycin. Added clindamycin 300 mg p.o. every 6 hours today. 04/01/2018-surgical debridement of the scrotum was done by Dr. Roy. Cultures positive for staph hemolyticus and Peptostreptococcus. Patient is on Unasyn and clindamycin. (2) Smoker Is this a current diagnosis for this admission?: Yes (3) Type 2 diabetes mellitus Is this a current diagnosis for this admission?: Yes Plan: 03/27/2018 patient is given the history of diabetes mellitus. But is not in any home medications. His blood sugars are running high during the hospital admission. Latest blood sugar is 242. I am going to check his hemoglobin A1c. He is going to be on insulin sliding scale before meals and at bedtime. Dietary consult is going to be requested. Diet and exercise was advised. 03/28/2018 patient history of diabetes mellitus not on any home medications. He is on insulin sliding scale before meals and at bedtime. Hemoglobin A1c is 8.4. I started him on glipizide 2.5 mg p.o. twice daily. Latest blood sugar is 228. Continue the present management continue to check his blood sugars on a regular basis. 03/29/2018-his blood sugars are 202. He is on insulin sliding scale before meals and at bedtime. Also getting glipizide 2.5 mg p.o. twice daily. His hemoglobin A1c is 8.4. I increased her glipizide to 5 mg p.o. twice daily. 03/30/2018 patient's blood sugar is 134 today. They consistently below 200s. He was on glipizide 5 mg p.o. twice a day and also insulin sliding scale before meals and at bedtime. We will continue the present management. 03/31/2018-sugar is 197 today. Glipizide 5 mg p.o. twice a day and also insulin sliding scale before meals and at bedtime. Hemoglobin A1c is 8.4. Glipizide was increased to 10 mg p.o. twice daily. 04/01/2018 latest blood sugars are 165. Improved. He is on insulin sliding scale before meals and bedtime hemoglobin A1c is 8.4 is getting glipizide 10 mg p.o. twice a day. (4) Tachycardia Is this a current diagnosis for this admission?: Yes Plan: 03/27/2018 patient's heart rate is around 108. Tachycardia may be secondary to sepsis/pain. Patient's heart rate is 98 today still tachycardic. May be secondary to pain. 03/29/2018 patient heart rate is 97. He still tachycardic may be secondary to the pain. 03/30/2018 heart rate is in the 90s. Improving tachycardia may be secondary to pain 03/31/2018 patient heart rate is 93 . We will continue to monitor the cardiac rhythm. (5) Hypertension Is this a current diagnosis for this admission?: Yes Plan: 03/27/2018 patient given the history of hypertension but is not any home medications. I started him on lisinopril 10 mg p.o. nightly. I am going to adjust his blood pressure medications based on the daily readings. 03/28/2018 patient has history of hypertension not on any home medications. He was started on lisinopril 10 mg p.o. daily yesterday today's blood pressure is 134/75. Well controlled. 03/29/2018-blood pressure today is 145/74. Relatively controlled. He is on lisinopril 10 mg p.o. daily. Continue the present management. 03/30/2018 patient blood pressure is elevated today 164/92. It may be secondary to pain. Presently he he is on lisinopril 10 mg p.o. daily. I am going to add amlodipine 2.5 mg to the regimen. We will continue monitor his blood pressures. 03/31/2018 patient's latest blood pressure is 149/92. Patient is on lisinopril 10 mg daily and amlodipine 2.5 mg daily and increased amlodipine to 5 mg daily . 04/01/2018 patient's blood pressure today is 162/96 he is on lisinopril 10 mg p.o. daily amlodipine 5 mg p.o. daily. Increased blood pressure may be secondary to pain. - Time Time Spent with patient: Less than 15 minutes Smoking Cessation Education: over 10 minutes Medications reviewed and adjusted accordingly: Yes Anticipated discharge: Home
[2018-04-01] MEDS ORDERED: KETOROLAC TROMETHAMINE INJ/PF 30 MG/1 ML SDV ONE (18:29)
[2018-04-01] MEDS ORDERED: KETOROLAC TROMETHAMINE INJ/PF 30 MG/1 ML SDV IV ONE (18:45)
[2018-04-01] MEDS: ACETAMINOPHEN 325 MG TABLET PO PRN (20:26)
[2018-04-01] MEDS: SIMVASTATIN 10 MG TABLET PO SCH (22:00)
[2018-04-02] MEDS: KETOROLAC TROMETHAMINE INJ/PF 30 MG/1 ML SDV IV SCH ×4 (00:05→21:53)
[2018-04-02] MEDS: AMPICILLIN SODIUM/SULBACTAM NA 3 GM in NORMAL SALINE 100 ML IV SCH ×4 (00:05→18:12)
[2018-04-02] MEDS: CLINDAMYCIN HCL 150 MG CAPSULE PO SCH ×4 (00:05→18:12)
[2018-04-02] MEDS: MORPHINE SULFATE 10 MG/ML INJ IV PRN ×2 (03:00→08:30)
[2018-04-02] MEDS: ACETAMINOPHEN 325 MG TABLET PO PRN ×4 (03:02→22:52)
[2018-04-02] MEDS: HEPARIN SOD (PORCINE) 5,000 UNIT/ML 1 ML SYRINGE SUBCUT SCH ×3 (05:01→22:55)
[2018-04-02] MEDS: IPRATROPIUM/ALBUTEROL 0.5-2.5 MG/3 ML AMPUL NEB SCH ×2 (08:17→21:24)
[2018-04-02] MEDS: GLIPIZIDE 10 MG TABLET PO SCH ×2 (09:12→16:33)
[2018-04-02] MEDS: DOCUSATE SODIUM 100 MG CAPSULE PO SCH ×2 (09:16→18:12)
[2018-04-02] MEDS: LISINOPRIL 10 MG TABLET PO SCH (09:16)
[2018-04-02] MEDS: NICOTINE 21 MG/24 HR PATCH.TD24 TD SCH (09:17)
[2018-04-02] MEDS: AMLODIPINE BESYLATE 5 MG TABLET PO SCH (09:18)
--- NOTE | 2018-04-02 10:42 | PDOC PROGRESS REPORT ---
Subjective Reason For Visit: LEFT GROIN AND SCROTAL ABSCESS,POSSIBLE SEPSIS Physical Exam Vital Signs: Temp Pulse Resp BP Pulse Ox 98.0 F 89 16 135/96 H 94 04/02/18 08:14 04/02/18 08:18 04/02/18 08:18 04/02/18 08:14 04/02/18 08:18 Intake & Output 04/01/18 04/02/18 04/03/18 06:59 06:59 06:59 Intake Total 1908 7550 Output Total 5850 Balance 1908 1700 Weight 122 kg 121.4 kg Results Laboratory Results: 03/29/18 14:35 03/28/18 06:27 Impressions: Chest X-Ray 03/26/18 19:02 IMPRESSION: NO ACUTE RADIOGRAPHIC FINDING IN THE CHEST. Assessment & Plan - Diagnosis (1) Scrotal abscess Is this a current diagnosis for this admission?: Yes (2) Type 2 diabetes mellitus Qualifiers: Diabetes mellitus complication detail: with other skin complication Is this a current diagnosis for this admission?: Yes - Plan Summary Plan Summary: This is a 52-year-old male with a significant scrotal abscess. The patient is status post further I&D yesterday. The patient's wounds appear relatively clean today. There is no significant purulence. There is no necrotic tissue. I have removed, and replaced, the patient's packing today. I will institute 3 times daily dressing changes. The patient reports that he is feeling better today. He has less pain. I have recommended ambulation. Continue antibiotics. Continue tight glucose control. Continue close monitoring of the patient's wounds. Repeat CBC today.
[2018-04-02] MEDS: HYDROMORPHONE HCL INJ/PF 2 MG/ML AMPULE IV PRN ×3 (11:38→20:35)
[2018-04-02 13:48] LABS: ABSOLUTE BASOPHILS # (AUTO) 0.1 10^3/uL (0.0-0.2); ABSOLUTE EOSINOPHILS # (AUTO) 0.4 10^3/uL (0.0-0.6); ABSOLUTE LYMPHOCYTES (AUTO) 2.5 10^3/uL (0.5-4.7); ABSOLUTE MONOCYTES (AUTO) 1.4 10^3/uL (0.1-1.4); ABSOLUTE NEUT (AUTO) 10.6 10^3/uL (1.7-8.2); BASOPHILS % (AUTO) 0.5 % (0-2); HEMATOCRIT 41.6 % (37.9-51.0); HEMOGLOBIN 14.4 g/dL (13.5-17.0); LYMPHOCYTES % (AUTO) 16.5 % (13-45); MEAN CORPUSCULAR HEMOGLOBIN 30.7 pg (27.0-33.4); MEAN CORPUSCULAR HGB CONC 34.5 g/dL (32.0-36.0); MEAN CORPUSCULAR VOLUME 89 fl (80-97); MONOCYTES % (AUTO) 9.1 % (3-13); PLATELET COUNT 515 10^3/uL (150-450); RED BLOOD COUNT 4.68 10^6/uL (4.35-5.55); RED CELL DISTRIBUTION WIDTH 13.1 % (11.5-14.0); SEGMENTED NEUTROPHILS % (AUTO) 70.9 % (42-78); TOTAL CELLS COUNTED % (AUTO) 100 %; WHITE BLOOD COUNT 14.9 10^3/uL (4.0-10.5)
--- NOTE | 2018-04-02 15:26 | PDOC PROGRESS REPORT ---
Subjective Progress Note for:: 04/02/18 Subjective:: 52-year-old male with history of diabetes hypertension admitted with a left scrotal abscess status post I&D was done. Medical consult was requested for controlling blood sugars and blood pressure. Other than the problem of the scrotum patient is asymptomatic. His main concern is the swollen scrotum. Patient T-max is 99. 03/29/2018 patient has a low-grade fever of 100.4 this morning. Latest blood sugar is 202. Blood pressures are relatively controlled. Other than the pain around the scrotal region patient denies any other complaints. 03/30/2018-patient has a T-max of 99. He still complaining of a lot of pain in his scrotal area. Other than that he said he is doing better. Acute events in the last 24 hours. 03/31/2018 T-max is 98. Doing well. Still complaining of pain in the surgical area. 04/01/2018 patient went to the OR again for debridement. Afebrile. 04/02/2018-patient is doing well no acute events. Reason For Visit: LEFT GROIN AND SCROTAL ABSCESS,POSSIBLE SEPSIS Physical Exam Vital Signs: Temp Pulse Resp BP Pulse Ox 98.0 F 86 20 147/98 H 94 04/02/18 12:22 04/02/18 12:22 04/02/18 12:22 04/02/18 12:22 04/02/18 12:22 Intake & Output 04/01/18 04/02/18 04/03/18 06:59 06:59 06:59 Intake Total 1908 7650 Output Total 5850 Balance 1908 1800 Weight 122 kg 121.4 kg General appearance: PRESENT: no acute distress Head exam: PRESENT: atraumatic Eye exam: PRESENT: PERRLA Mouth exam: PRESENT: moist Neck exam: ABSENT: carotid bruit, JVD, lymphadenopathy, thyromegaly Respiratory exam: PRESENT: clear to auscultation raine. ABSENT: rales, rhonchi, wheezes Cardiovascular exam: PRESENT: RRR. ABSENT: diastolic murmur, rubs, systolic murmur GI/Abdominal exam: PRESENT: normal bowel sounds, soft. ABSENT: distended, guarding, mass, organolmegaly, rebound, tenderness Neurological exam: PRESENT: alert, awake, oriented to person, oriented to place , oriented to time, oriented to situation, CN II-XII grossly intact. ABSENT: motor sensory deficit Psychiatric exam: PRESENT: appropriate affect, normal mood. ABSENT: homicidal ideation, suicidal ideation Results Laboratory Results: 04/02/18 13:10 03/28/18 06:27 04/02/18 13:10 WBC 14.9 H RBC 4.68 Hgb 14.4 Hct 41.6 MCV 89 MCH 30.7 MCHC 34.5 RDW 13.1 Plt Count 515 H Seg Neutrophils % 70.9 Lymphocytes % 16.5 Monocytes % 9.1 Eosinophils % 3.0 Basophils % 0.5 Absolute Neutrophils 10.6 H Absolute Lymphocytes 2.5 Absolute Monocytes 1.4 Absolute Eosinophils 0.4 Absolute Basophils 0.1 Impressions: Chest X-Ray 03/26/18 19:02 IMPRESSION: NO ACUTE RADIOGRAPHIC FINDING IN THE CHEST. Assessment & Plan - Diagnosis (1) Scrotal abscess Is this a current diagnosis for this admission?: Yes Plan: 03/27/2018-patient came in with left-sided scrotal abscess status post I&D was done. Scrotal cultures are pending blood cultures are pending. I started him on Unasyn 3 g IV every 6 hours. Pain management as per the surgical team. off IV fluids. 03/28/2018-is admitted with scrotal abscess status post I&D was done as per the surgical team scrotum was taped very much swollen but was clean. He is getting Unasyn. Cultures are pending. Cultures came back positive for Peptostreptococcus and sensitivity to Unasyn. 03/29/2018-the cultures from the scrotal area shows gram-positive cocci in clusters, Peptostreptococcus. Patient is on Unasyn. He had a low-grade fever of 100.4. Blood cultures are negative. Surgical team are the primary following the patient. 03/30/2018 cultures from the scrotal area shows gram-positive cocci in clusters. Also Peptostreptococcus. Patient is on Unasyn. Patient is afebrile in the last 24 hours. Pain management as per the surgical team. Patient is describing the pain scale of 7 / 10. 03/31/2018 the cultures came back positive for staph hemolyticus, Streptococcus. To be due to Unasyn and clindamycin. Added clindamycin 300 mg p.o. every 6 hours today. 04/01/2018-surgical debridement of the scrotum was done by Dr. Roy. Cultures positive for staph hemolyticus and Peptostreptococcus. Patient is on Unasyn and clindamycin. 04/02/2018-the cultures came back positive for staph hemolyticus and Peptostreptococcus patient is on Unasyn and clindamycin afebrile and will continue the present management. (2) Smoker Is this a current diagnosis for this admission?: Yes Plan: 03/27/2018 patient has history of smoking 3 packs/day. Smoking counseling was advised and smoking counseling was provided for more than 10 minutes. Advised to quit smoking. 03/28/2018 patient smokes more than 3 packs/day. Smoking counseling was provided for more than 10 minutes today again. 03/29/2018 patient is a heavy chronic smoker. Again smoking counseling was provided. He is getting nicotine patch. 03/31/2018-patient is a chronic smoker and be giving nicotine patch daily. 04/02/2018 patient is on nicotine patch daily. (3) Type 2 diabetes mellitus Qualifiers: Diabetes mellitus complication detail: with other skin complication Is this a current diagnosis for this admission?: Yes Plan: 03/27/2018 patient is given the history of diabetes mellitus. But is not in any home medications. His blood sugars are running high during the hospital admission. Latest blood sugar is 242. I am going to check his hemoglobin A1c. He is going to be on insulin sliding scale before meals and at bedtime. Dietary consult is going to be requested. Diet and exercise was advised. 03/28/2018 patient history of diabetes mellitus not on any home medications. He is on insulin sliding scale before meals and at bedtime. Hemoglobin A1c is 8.4. I started him on glipizide 2.5 mg p.o. twice daily. Latest blood sugar is 228. Continue the present management continue to check his blood sugars on a regular basis. 03/29/2018-his blood sugars are 202. He is on insulin sliding scale before meals and at bedtime. Also getting glipizide 2.5 mg p.o. twice daily. His hemoglobin A1c is 8.4. I increased her glipizide to 5 mg p.o. twice daily. 03/30/2018 patient's blood sugar is 134 today. They consistently below 200s. He was on glipizide 5 mg p.o. twice a day and also insulin sliding scale before meals and at bedtime. We will continue the present management. 03/31/2018-sugar is 197 today. Glipizide 5 mg p.o. twice a day and also insulin sliding scale before meals and at bedtime. Hemoglobin A1c is 8.4. Glipizide was increased to 10 mg p.o. twice daily. 04/01/2018 latest blood sugars are 165. Improved. He is on insulin sliding scale before meals and bedtime hemoglobin A1c is 8.4 is getting glipizide 10 mg p.o. twice a day. patient latest blood sugars are 148 stable. Patient is very compliant with his diet. (4) Tachycardia Is this a current diagnosis for this admission?: Yes Plan: 03/27/2018 patient's heart rate is around 108. Tachycardia may be secondary to sepsis/pain. Patient's heart rate is 98 today still tachycardic. May be secondary to pain. 03/29/2018 patient heart rate is 97. He still tachycardic may be secondary to the pain. 03/30/2018 heart rate is in the 90s. Improving tachycardia may be secondary to pain 03/31/2018 patient heart rate is 93 . We will continue to monitor the cardiac rhythm. 04/02/2018 patient is still tachycardic heart rate is 98. But he is in sinus rhythm. (5) Hypertension Is this a current diagnosis for this admission?: Yes Plan: 03/27/2018 patient given the history of hypertension but is not any home medications. I started him on lisinopril 10 mg p.o. nightly. I am going to adjust his blood pressure medications based on the daily readings. 03/28/2018 patient has history of hypertension not on any home medications. He was started on lisinopril 10 mg p.o. daily yesterday today's blood pressure is 134/75. Well controlled. 03/29/2018-blood pressure today is 145/74. Relatively controlled. He is on lisinopril 10 mg p.o. daily. Continue the present management. 03/30/2018 patient blood pressure is elevated today 164/92. It may be secondary to pain. Presently he he is on lisinopril 10 mg p.o. daily. I am going to add amlodipine 2.5 mg to the regimen. We will continue monitor his blood pressures. 03/31/2018 patient's latest blood pressure is 149/92. Patient is on lisinopril 10 mg daily and amlodipine 2.5 mg daily and increased amlodipine to 5 mg daily . 04/01/2018 patient's blood pressure today is 162/96 he is on lisinopril 10 mg p.o. daily amlodipine 5 mg p.o. daily. Increased blood pressure may be secondary to pain. 05/03/2017 patient is complaining of pain of 6/10. Blood pressure is 1 4798. He is on lisinopril 10 mg daily amlodipine 5 mg daily I am going to increase the amlodepine to 10 mg daily. - Time Time Spent with patient: 15-24 minutes Smoking Cessation Education: over 10 minutes Medications reviewed and adjusted accordingly: Yes Anticipated discharge: Home
[2018-04-02] MEDS: SIMVASTATIN 10 MG TABLET PO SCH (22:55)
[2018-04-03] MEDS: CLINDAMYCIN HCL 150 MG CAPSULE PO SCH ×3 (00:02→11:51)
[2018-04-03] MEDS: HYDROMORPHONE HCL INJ/PF 2 MG/ML AMPULE IV PRN ×4 (00:40→14:06)
[2018-04-03] MEDS: AMPICILLIN SODIUM/SULBACTAM NA 3 GM in NORMAL SALINE 100 ML IV SCH ×3 (01:02→11:51)
[2018-04-03] MEDS: KETOROLAC TROMETHAMINE INJ/PF 30 MG/1 ML SDV IV SCH (05:15)
[2018-04-03] MEDS: HEPARIN SOD (PORCINE) 5,000 UNIT/ML 1 ML SYRINGE SUBCUT SCH ×2 (05:17→14:07)
[2018-04-03] MEDS: GLIPIZIDE 10 MG TABLET PO SCH (08:12)
[2018-04-03] MEDS: IPRATROPIUM/ALBUTEROL 0.5-2.5 MG/3 ML AMPUL NEB SCH (08:23)
[2018-04-03 08:54] LABS: ABSOLUTE BASOPHILS # (AUTO) 0.2 10^3/uL (0.0-0.2); ABSOLUTE EOSINOPHILS # (AUTO) 0.6 10^3/uL (0.0-0.6); ABSOLUTE LYMPHOCYTES (AUTO) 2.3 10^3/uL (0.5-4.7); ABSOLUTE MONOCYTES (AUTO) 1.1 10^3/uL (0.1-1.4); HEMATOCRIT 43.3 % (37.9-51.0); HEMOGLOBIN 14.9 g/dL (13.5-17.0); LYMPHOCYTES % (AUTO) 15.2 % (13-45); MEAN CORPUSCULAR HEMOGLOBIN 30.7 pg (27.0-33.4); MEAN CORPUSCULAR HGB CONC 34.4 g/dL (32.0-36.0); MEAN CORPUSCULAR VOLUME 89 fl (80-97); MONOCYTES % (AUTO) 7.1 % (3-13); PLATELET COUNT 568 10^3/uL (150-450); RED BLOOD COUNT 4.84 10^6/uL (4.35-5.55); SEGMENTED NEUTROPHILS % (AUTO) 72.7 % (42-78); TOTAL CELLS COUNTED % (AUTO) 100 %; WHITE BLOOD COUNT 15.1 10^3/uL (4.0-10.5)
--- NOTE | 2018-04-03 09:24 | PDOC PROGRESS REPORT ---
Subjective Progress Note for:: 04/03/18 Subjective:: comfortable Reason For Visit: LEFT GROIN AND SCROTAL ABSCESS,POSSIBLE SEPSIS Physical Exam Vital Signs: Temp Pulse Resp BP Pulse Ox 98.8 F 92 18 140/84 H 95 04/03/18 07:21 04/03/18 08:24 04/03/18 08:24 04/03/18 07:21 04/03/18 08:24 Intake & Output 04/02/18 04/03/18 04/04/18 06:59 06:59 06:59 Intake Total 7650 750 100 Output Total 5850 Balance 1800 750 100 Weight 121.4 kg 122.4 kg Gentrourinary exam: PRESENT: other - large induratrion of scrotum and left pubic area with diffuse erythema, no drainage, no odor Results Laboratory Results: 04/03/18 08:31 03/28/18 06:27 04/02/18 04/03/18 13:10 08:31 WBC 14.9 H 15.1 H RBC 4.68 4.84 Hgb 14.4 14.9 Hct 41.6 43.3 MCV 89 89 MCH 30.7 30.7 MCHC 34.5 34.4 RDW 13.1 13.0 Plt Count 515 H 568 H Seg Neutrophils % 70.9 72.7 Lymphocytes % 16.5 15.2 Monocytes % 9.1 7.1 Eosinophils % 3.0 4.0 Basophils % 0.5 1.0 Absolute Neutrophils 10.6 H 11.0 H Absolute Lymphocytes 2.5 2.3 Absolute Monocytes 1.4 1.1 Absolute Eosinophils 0.4 0.6 Absolute Basophils 0.1 0.2 Impressions: Chest X-Ray 03/26/18 19:02 IMPRESSION: NO ACUTE RADIOGRAPHIC FINDING IN THE CHEST. Assessment & Plan - Diagnosis (1) Scrotal abscess Is this a current diagnosis for this admission?: Yes - Plan Summary Plan Summary: A/ POD#8 after I&D scrotal multiple abscesses diffuse scrotal and left pubic induration and erythema P/ continue wound care as before continue IV abx (unasyn/Clinda) scrotal US to r/o fluid collections
[2018-04-03] MEDS: NICOTINE 21 MG/24 HR PATCH.TD24 TD SCH (09:49)
[2018-04-03] MEDS: LISINOPRIL 10 MG TABLET PO SCH (09:50)
[2018-04-03] MEDS ORDERED: DOCUSATE SODIUM 100 MG CAPSULE PO SCH (10:00)
[2018-04-03] MEDS ORDERED: AMLODIPINE BESYLATE 10 MG TABLET PO SCH (10:00)
[2018-04-03] MEDS ORDERED: MAGNESIUM HYDROXIDE SUSP 30 ML UDCUP PO SCH (10:00)
[2018-04-03] MEDS: ACETAMINOPHEN 325 MG TABLET PO PRN (11:50)
--- NOTE | 2018-04-03 14:29 | RADIOLOGY REPORT (SQ) ---
EXAM DESCRIPTION: U/S SCROTUM W/O DOPPLER COMPLETED DATE/TIME: 04/03/2018 2:00 pm REASON FOR STUDY: f/u I D of scrotum/ L groin; r/o fluid collections COMPARISON: None. TECHNIQUE: Static and realtime gary scale imaging of the scrotum and testes. Selected color Doppler and spectral images recorded to document blood flow. LIMITATIONS: None. FINDINGS: RIGHT: TESTICLE: Normal size, 3.9 x 3.1 x 2 cm. Normal echotexture. Normal blood flow. No mass. EPIDIDYMIS: Normal. HYDROCELE OR VARICOCELE: No. HERNIA OR EXTRA-TESTICULAR MASS: No. OTHER: Diffuse scrotal wall skin thickening. LEFT: TESTICLE: Normal size, 3.3 x 3 x 2.7 cm. Normal echotexture. Normal blood flow. No mass. EPIDIDYMIS: Normal. HYDROCELE OR VARICOCELE: Small varicocele. No hydrocele HERNIA OR EXTRA-TESTICULAR MASS: No. OTHER: Diffuse scrotal wall skin thickening Patient has bandages over the left inguinal region. Although there is skin thickening and edema in t he subcutaneous fat, a left inguinal abscess is not identified. IMPRESSION: No ultrasound evidence of torsion or significant hydrocele Diffuse scrotal wall thickening No left inguinal abscess is identified at ultrasound TECHNICAL DOCUMENTATION: JOB ID: [id number] [employer]369[employer]- All Rights Reserved Reading location - IP/workstation name: [email or web address]
[2018-04-03] MEDS ORDERED: TRAMADOL HCL 50 MG TABLET PO PRN (16:22)
[2018-04-03 16:49] VITALS: BP 162/96
--- NOTE | 2018-04-04 01:02 | DISCHARGE SUMMARY E ---
Discharge Summary NAME: WASHINGTON MADSEN : 1965 AGE: 52Y ADMITTED: 03/27/2018 DISCHARGED: 04/03/2018 FINAL DIAGNOSIS: BILATERAL SCROTAL ABSCESS AND LEFT GROIN ABSCESS. TYPE II DIABETES HYPERTENSION TOBACCOISM PROCEDURE: Patient underwent extensive full thickness debridement, sharp, of the scrotum in left groin on March 27, 2018. COMPLICATIONS: None. HOSPITAL COURSE: This is a healthy male admitted on March 26, 2018 complaining of 3-4 days of groin swelling, night sweats, shaking, chills. Found to have purulent drainage from the scrotum on the left as well as abscess. The patient was taken to surgery on the following day and underwent extensive debridement of multiple abscesses of the scrotum bilaterally as well as the left groin. Postoperative, the patient underwent management of the wound with dry dressing changes as well as packing of the wounds with wet-to-dry dressing changes daily. Cultures of the wound revealed the presence of peptostreptococcus and staphylococcus. The patient was kept on IV antibiotics of Unasyn and clindamycin. An ultrasound of the scrotum was repeated on April 03, 2018 without evidence of abscess or hydrocele or testicular torsion. There was diffuse swelling of the scrotum. PHYSICAL EXAM: The patient had no fever. The scrotum martínez were slightly erythematous with multiple openings on the right and left side as well as enlarged opening in the left groin which was granulating, no drainage, no odor identified, no pain on palpation. The patient was therefore discharged on April 03 and was given followup appointment to the office in 2 weeks. Wet-to-dry dressing changes are performed by home care nurse daily. The patient was given Augmentin 875 mg p.o. b.i.d. for 7 days. Ice packs to the scrotum as needed for pain. Shower only. Bathe only when the wounds are completely closed. The patient was given Ultram 50 mg p.o. every 6 hours for pain for 2 days and then the patient was recommended to start taking Tylenol and Aleve for pain. Glipizide, Nicotine patches, Norvasc were prescribed. The patient was instructed to wear a scrotal support for comfort. The patient was recommended to be on a diabetic diet, to resume activities as tolerated due to discomfort of scrotum. DICTATING PHYSICIAN: MAXI FERGUSON M.D. [id number] PHY#: [id number] ID: [id number] JOB#: [id number] ACCT: [id number] cc:MORENA LOVE M.D. > MTDD
== END 2018-04-03 17:30 | disposition home health service (06) | DRG 988 ==
LOC: ER 17:55 → INTOOBSV 21:01 → OBSVTOIN 21:01 → EH 21:01 → 3N 23:20 → 4W 03-27 04:11 → OBSVTOIN 03-27 17:17
PROVIDERS: ADMIT Surgery; ATTEND Surgery
PROC: 0V950ZX Drainage of Scrotum, Open Approach, Diagnostic (ICD-10-PCS; 2018-03-26)
PROC: 0V9500Z Drainage of Scrotum with Drainage Device, Open Approach (ICD-10-PCS; 2018-04-01)
PROC: 0VB50ZZ Excision of Scrotum, Open Approach (ICD-10-PCS; principal; 2018-04-01 12:00)
DX: E11.628 Type 2 diabetes mellitus with other skin complications (principal); L03.314 Cellulitis of groin; L02.214 Cutaneous abscess of groin; N49.2 Inflammatory disorders of scrotum; E11.65 Type 2 diabetes mellitus with hyperglycemia; F17.210 Nicotine dependence, cigarettes, uncomplicated; I10 Essential (primary) hypertension; D72.829 Elevated white blood cell count, unspecified; Z71.6 Tobacco abuse counseling; B95.4 Other streptococcus as the cause of diseases classified elsewhere; B95.7 Other staphylococcus as the cause of diseases classified elsewhere; R00.0 Tachycardia, unspecified; Z79.899 Other long term (current) drug therapy; Z79.4 Long term (current) use of insulin
CPT/HCPCS: 36415; 71045; 76870; 80048; 80053; 82550; 82553; 82962; 83036; 83605; 83735; 83880; 84484; 85025; 85610; 87040; 87070; 87075; 87077; 87186; 87205; 920; 93005; 93010; 94640; 94799; 96361; 96374; 96375; 99285; A6266; G0378; J0131; J0295; J1170; J1644; J1815; J1885; J2250; J2270; J2405; J2543; J2704; J3010; J3370; J3490; J7030; J7620

== ENCOUNTER → 2018-12-03 | Outpatient (CLI) | payer OTHER ==
[2018-12-03 09:53] LABS: HEMATOCRIT 49.2 % (37.9-51.0); HEMOGLOBIN 17.2 g/dL (13.5-17.0); MEAN CORPUSCULAR HEMOGLOBIN 31.4 pg (27.0-33.4); MEAN CORPUSCULAR HGB CONC 35.1 g/dL (32.0-36.0); MEAN CORPUSCULAR VOLUME 90 fl (80-97); PLATELET COUNT 324 10^3/uL (150-450); RED BLOOD COUNT 5.48 10^6/uL (4.35-5.55); RED CELL DISTRIBUTION WIDTH 13.6 % (11.5-14.0); WHITE BLOOD COUNT 12.5 10^3/uL (4.0-10.5)
[2018-12-03 10:13] LABS: ALBUMIN 4.2 g/dL (3.5-5.0); ALKALINE PHOSPHATASE 84 U/L (38-126); ANION GAP 10 (5-19); ASPARTATE AMINO TRANSFERASE 37 U/L (17-59); BILIRUBIN,DIRECT 0.3 mg/dL (0.0-0.4); BILIRUBIN,TOTAL 0.4 mg/dL (0.2-1.3); BLOOD UREA NITROGEN 18 mg/dL (7-20); CALCIUM 9.6 mg/dL (8.4-10.2); CARBON DIOXIDE 29 mmol/L (22-30); CHLORIDE 98 mmol/L (98-107); CHOLESTEROL 274.57 mg/dL (0-200); GLUCOSE 196 mg/dL (75-110); POTASSIUM 4.9 mmol/L (3.6-5.0)
[2018-12-03 10:24] LABS: DIRECT LDL 81 mg/dL (<100)
[2018-12-03 10:27] LABS: TRIGLYCERIDES 963 mg/dL (<150)
[2018-12-03 10:37] LABS: ABSOLUTE LYMPHOCYTES# (MANUAL) 3.1 10^3/uL (0.5-4.7); ABSOLUTE MONOCYTES # (MANUAL) 0.8 10^3/uL (0.1-1.4); BASOPHILS % (MANUAL) 0 % (0-2); EOSINOPHILS % (MANUAL) 1 % (0-6); LYMPHOCYTES % (MANUAL) 25 % (13-45); MONOCYTES % (MANUAL) 6 % (3-13); SEGMENTED NEUTROPHILS % (MAN) 68 % (42-78); TOTAL CELLS COUNTED 100
[2018-12-03 10:38] LABS: PLATELET COMMENT ADEQUATE; RBC MORPHOLOGY COMMENT NORMO-CYTIC/CHROMIC; TOXIC GRANULATION SLIGHT; TOXIC VACUOLATION PRESENT
== END ==
LOC: CCC 09:06
DX: Z00.00 Encounter for general adult medical examination without abnormal findings (principal)
CPT/HCPCS: 36415; 80053; 80061; 83036; 84443; 85025